=== PATIENT | female | born 1985 | race Caucasian/White ===

== ENCOUNTER → 2016-12-09 | Outpatient (CLI) | payer OTHER ==
[~2016-12-09] MED LIST: PRENTAB26 PO
[2016-12-09 09:46] LABS: HEMATOCRIT 40.1 % (37-47); MEAN CELL VOLUME 87.6 fL (80-100); MEAN CORPUSCULAR HEMOGLOBIN 29.7 pg (25-34); MEAN CORPUSCULAR HGB CONC 33.9 g/dl (32-36); MEAN PLATELET VOLUME 8.8 fL (7.4-10.4); PLATELET COUNT 275 K/uL (130-400); RED BLOOD COUNT 4.58 M/uL (4.2-5.4); WHITE BLOOD COUNT 9.45 K/uL (4.8-10.8)
[2016-12-09 10:19] LABS: RUBELLA SCREEN IgG (AT CCH) IMMUNE (IMMUNE)
== END | disposition home or self-care (01) ==
LOC: C.LAB1850 07:05
PROVIDERS: ATTEND Specialist
DX: Z31.41 Encounter for fertility testing (principal); Z01.83 Encounter for blood typing; Z11.59 Encounter for screening for other viral diseases; Z11.3 Encounter for screening for infections with a predominantly sexual mode of transmission; Z11.4 Encounter for screening for human immunodeficiency virus [HIV]; Z13.0 Encounter for screening for diseases of the blood and blood-forming organs and certain disorders involving the immune mechanism; Z13.21 Encounter for screening for nutritional disorder

== ENCOUNTER → 2016-12-28 | Outpatient (CLI) | payer OTHER | END | disposition home or self-care (01) | LOC: C.LAB1850 07:45 | PROVIDERS: ATTEND Specialist | DX: Z31.41 Encounter for fertility testing (principal) ==

== ENCOUNTER → 2017-01-04 | Outpatient (CLI) | payer OTHER | END | disposition home or self-care (01) | LOC: C.LAB1850 08:05 | PROVIDERS: ATTEND Specialist | DX: Z00.00 Encounter for general adult medical examination without abnormal findings (principal) ==

== ENCOUNTER → 2017-01-06 | Outpatient (CLI) | payer OTHER | END | disposition home or self-care (01) | LOC: C.LAB1850 08:56 | PROVIDERS: ATTEND Specialist | DX: Z31.41 Encounter for fertility testing (principal) ==

== ENCOUNTER → 2017-02-04 | Outpatient (CLI) | payer OTHER | END | disposition home or self-care (01) | LOC: C.LAB1850 07:33 | PROVIDERS: ATTEND Specialist | DX: O09.00 Supervision of pregnancy with history of infertility, unspecified trimester (principal); Z3A.00 Weeks of gestation of pregnancy not specified ==

== ENCOUNTER → 2017-02-08 | Outpatient (CLI) | payer OTHER | END | disposition home or self-care (01) | LOC: C.LAB1850 07:06 | PROVIDERS: ATTEND Specialist | DX: Z32.00 Encounter for pregnancy test, result unknown (principal) ==

== ENCOUNTER → 2017-03-15 | Outpatient (CLI) | payer OTHER ==
[~2017-03-15] MED LIST changes: +FOLI1TAB7 PO; +MTR600X PO; +OXYC-57 PO
[2017-03-15 18:24] LABS: URINE APPEARANCE CLEAR (CLEAR); URINE BILIRUBIN NEG (NEG); URINE COLOR YELLOW; URINE NITRITE NEG (NEG); URINE PH 6.5 (4.5-7.5); URINE SPECIFIC GRAVITY 1.005 (1.000-1.030); UROBILINOGEN NEG (NEG)
[2017-03-15 18:30] LABS: MANUAL MICROSCOPIC REQUIRED? NO; REVIEW REQ? NO
[2017-03-18 03:05] LABS: CHLAMYDIA TRACH RNA*** NOT DETECTED (NOT DETECTED); GC (NEIS GONORRHOEAE)RNA** NOT DETECTED (NOT DETECTED)
== END | disposition home or self-care (01) ==
LOC: C.LABSPEC 17:50
PROVIDERS: ATTEND Obstetrics & Gynecology
DX: O09.819 Supervision of pregnancy resulting from assisted reproductive technology, unspecified trimester (principal)

== ENCOUNTER → 2017-03-15 | Outpatient (CLI) | payer OTHER ==
[2017-03-15 16:36] LABS: BASO % 0.1 %; BASO ABS # 0.01 K/uL (0-0.2); COMPLETE YES; EOS % 0.2 %; HEMATOCRIT 38.2 % (37-47); IG% 0.2 %; LYMPH % 22.3 %; LYMPH ABS # 2.73 K/uL (1.2-3.4); MEAN CELL VOLUME 86.8 fL (80-100); MEAN CORPUSCULAR HEMOGLOBIN 30.2 pg (25-34); MEAN CORPUSCULAR HGB CONC 34.8 g/dl (32-36); MEAN PLATELET VOLUME 8.2 fL (7.4-10.4); MONO % 7.1 %; NEUT % 70.1 %; PLATELET COUNT 290 K/uL (130-400); WHITE BLOOD COUNT 12.25 K/uL (4.8-10.8)
== END | disposition home or self-care (01) ==
LOC: C.LAB1850 15:11
PROVIDERS: ATTEND Obstetrics & Gynecology
DX: O09.819 Supervision of pregnancy resulting from assisted reproductive technology, unspecified trimester (principal)

== ENCOUNTER → 2017-04-26 | Outpatient (CLI) | payer OTHER ==
[2017-04-26 11:22] LABS: GTGD 50 Grams
== END | disposition home or self-care (01) ==
LOC: C.LAB1850 09:12
PROVIDERS: ATTEND Obstetrics & Gynecology
DX: O09.812 Supervision of pregnancy resulting from assisted reproductive technology, second trimester (principal)

== ENCOUNTER → 2017-07-20 | Outpatient (CLI) | payer OTHER ==
[~2017-07-20] MED LIST changes: -FOLI1TAB7 PO; -MTR600X PO; -OXYC-57 PO
[2017-07-20 18:16] LABS: URINE APPEARANCE CLEAR (CLEAR); URINE BILIRUBIN NEG (NEG); URINE COLOR YELLOW; URINE NITRITE NEG (NEG); URINE PH 7.5 (4.5-7.5); URINE SPECIFIC GRAVITY 1.011 (1.000-1.030); UROBILINOGEN NEG (NEG)
[2017-07-20 18:19] LABS: MANUAL MICROSCOPIC REQUIRED? NO; REVIEW REQ? YES
== END | disposition home or self-care (01) ==
LOC: C.LABSPEC 17:34
PROVIDERS: ATTEND Obstetrics & Gynecology
DX: O09.813 Supervision of pregnancy resulting from assisted reproductive technology, third trimester (principal)

== ENCOUNTER → 2017-07-20 | Outpatient (CLI) | payer OTHER ==
[2017-07-20 17:44] LABS: HEMATOCRIT 31.3 % (37-47)
[2017-07-20 22:13] LABS: GTGD 50 Grams
== END | disposition home or self-care (01) ==
LOC: C.LAB1850 16:42
PROVIDERS: ATTEND Obstetrics & Gynecology
DX: O09.813 Supervision of pregnancy resulting from assisted reproductive technology, third trimester (principal)

== ENCOUNTER 2017-10-04 15:27 | Inpatient (IN) | payer OTHER ==
[~2017-10-04] VITALS: Ht 167.6 cm; Wt 88.5 kg
[2017-10-04] MEDS ORDERED: LACTATED RINGER'S 1000ML 1,000 ML IV PRN (16:29)
[2017-10-04 16:57] VITALS: Ht 167.6 cm; Wt 88.5 kg
[2017-10-04 16:59] LABS: HEMATOCRIT 36.9 % (37-47); MEAN CELL VOLUME 86.6 fL (80-100); MEAN CORPUSCULAR HEMOGLOBIN 29.6 pg (25-34); MEAN CORPUSCULAR HGB CONC 34.1 g/dl (32-36); MEAN PLATELET VOLUME 8.5 fL (7.4-10.4); PLATELET COUNT 214 K/uL (130-400); RED BLOOD COUNT 4.26 M/uL (4.2-5.4); WHITE BLOOD COUNT 11.99 K/uL (4.8-10.8)
[2017-10-04] MEDS ORDERED: FOLI1TAB7 PO (17:04)
[2017-10-04 17:26] LABS: BUN/CREATININE RATIO 12.4 (10-20); CALCIUM 9.3 mg/dl (8.5-10.1); CREATININE 0.7 mg/dl (0.60-1.20)
[2017-10-04 17:29] LABS: ALB/GLOB RATIO 0.6 (0.9-2)
[2017-10-04] MEDS ORDERED: LACTATED RINGER'S 1000ML 500 ML IV PRN (21:17)
[2017-10-04] MEDS ORDERED: OXYTOCIN 30 UNITS/500ML NSS IV PRN (21:30)
[2017-10-04] MEDS: LACTATED RINGER'S 1000ML 1,000 ML IV SCH (22:05)
[2017-10-05] MEDS: LACTATED RINGER'S 1000ML 1,000 ML IV SCH ×3 (06:08→17:46)
[2017-10-05] MEDS ORDERED: LACTATED RINGER'S 1000ML 500 ML IV PRN ×3 (08:14→23:16)
[2017-10-05] MEDS ORDERED: OXYTOCIN 30 UNITS/500ML NSS IV PRN (08:15)
[2017-10-05] MEDS ORDERED: FENTANYL 2MCG/ML ROPIV 1.25MG/ML 100ML BAG EPI ONE (12:47)
[2017-10-05] MEDS ORDERED: EpHEDrine SULFATE INJ 50 MG/ML AMP ONE (12:47)
[2017-10-05] MEDS ORDERED: FENTANYL CITRATE INJ 50 MCG/1 ML 2 ML VIAL ONE ×2 (12:47→23:10)
[2017-10-05] MEDS ORDERED: BUPIVACAINE 0.25% 30 ML VIAL ONE ×2 (12:47→22:59)
[2017-10-05] MEDS ORDERED: NALOXONE HCL INJ 1 MG in SODIUM CHLORIDE 0.9% 1000ML 1,000 ML IV PRN ×2 (14:06→23:16)
[2017-10-05] MEDS ORDERED: ONDANSETRON INJ 2 MG/ML 2 ML VIAL IV PRN (14:15)
[2017-10-05] MEDS ORDERED: EpHEDrine SULFATE INJ 50 MG/ML AMP IV PRN ×2 (14:15→23:30)
[2017-10-05] MEDS ORDERED: DiphenhydrAMINE HCL 50 MG/ML VIAL IV PRN ×2 (14:15→23:30)
[2017-10-05] MEDS ORDERED: NALBUPHINE HCL INJ 10 MG/ML AMP IV PRN ×2 (14:15→23:30)
[2017-10-05] MEDS ORDERED: NALOXONE HCL INJ 0.4 MG/1 ML VIAL/CARP IV PRN ×2 (14:15→23:30)
[2017-10-05] MEDS: FENTANYL 2MCG/ML ROPIV 1.25MG/ML 100ML BAG EPI PRN ×3 (19:08→23:37)
[2017-10-05] MEDS ORDERED: FENTANYL 2MCG/ML ROPIV 1.25MG/ML 100ML BAG EPI PRN (23:30)
[2017-10-06] VITALS (20 sets, daily range): BP systolic 115–146; BP diastolic 53–90; PULSE 98–112; TEMP 36.7–37.3; O2SAT 96–100
[2017-10-06] MEDS ORDERED: LACTATED RINGER'S 1000ML 1,000 ML IV SCH ×2 (00:44→11:00)
[2017-10-06] MEDS ORDERED: CITRIC ACID/SODIUM CITRATE 15 ML UDC PO ONE (00:45)
[2017-10-06] MEDS ORDERED: CITRIC ACID/SODIUM CITRATE 15 ML UDC ONE (00:46)
[2017-10-06] MEDS ORDERED: CEFAZOLIN IV 2,000 MG in SYRINGE 0 ML IV ONE (01:00)
[2017-10-06] MEDS ORDERED: METOCLOPRAMIDE HCL INJ 5 MG/ML 2 ML VIAL ONE (01:06)
[2017-10-06] MEDS ORDERED: OXYTOCIN INJ 10 UNITS/ML VIAL ONE ×4 (01:06→02:01)
[2017-10-06] MEDS ORDERED: ONDANSETRON INJ 2 MG/ML 2 ML VIAL ONE ×2 (01:06→02:01)
[2017-10-06] MEDS ORDERED: PHENYLEPHRINE HCL INJ 10 MG/ML VIAL ONE (01:06)
[2017-10-06] MEDS ORDERED: EpHEDrine SULFATE INJ 50 MG/ML AMP ONE (01:06)
[2017-10-06] MEDS ORDERED: FENTANYL CITRATE INJ 50 MCG/1 ML 2 ML VIAL ONE (01:06)
[2017-10-06] MEDS ORDERED: MoRPHine SULFATE PF 1 MG/ML 10 ML AMP/VIAL ONE (01:07)
--- NOTE | 2017-10-06 01:42 | HISTORY & PHYSICAL EXAMINATION ---
DATE OF ADMISSION: 10/04/2017 PREOPERATIVE DIAGNOSES: 1. Intrauterine at 39 and 5/7 weeks. 2. Gestational hypertension. 3. Failure to descend with failure to progress past 9 cm. HISTORY OF PRESENT ILLNESS: The patient is a 32-year-old white female, 3, para 0-0-2-0, with an EDC of 10/09/2017, for an estimated gestational age today of 39 and 5. The patient presented to her outpatient 39-week visit, was found to have elevated blood pressures of 150s/90s. She was sent to labor and delivery for evaluation. Decision was made for induction for gestational hypertension. The patient underwent a Schofield catheter ripening on day 1 with low-dose Pitocin overnight on day 1 into day 2. On day 2, normal induction dosing of Pitocin was started. She underwent an amniotomy for thin green meconium stained fluid. An intrauterine pressure catheter was placed at 5 cm dilated and her Pitocin was at 917 to evaluate for adequacy of contractions. Contractions were adequate at that time. She progressed very slowly to 9 cm. At about 5:00, she was 7 cm and -1 station. At around 9:00, she was 9 cm with a very large edematous anterior lip. We tried to push past this as the patient was involuntarily pushing; however, the lip could not be reduced, so the patient's epidural was redosed. She has now been 9 cm with a thickened anterior lip for 4 hours. The patient's station has not descended from -1. I discussed the situation with the patient and her at this point in time. I did discuss that we could wait longer to see if this anterior lip would go away, but it was quite concerning that over the space of 4 hours, the lip had not reduced at all and that the station had not descended from -1 station. Additionally, the baby is in ROP presentation. We discussed the option of continued labor until per ACOG recommendation she is 6 hours without descent or further dilation or proceeding with delivery. After discussing the risks and benefits of any of these options, they have decided to proceed with delivery. Her is complicated in that she is a cystic fibrosis carrier but her partner is negative. This was conceived via in vitro fertilization. There was a normal echo. Ultrasound performed on 08/16/2017 to follow growth in this IVF showed an estimated weight in the 87th percentile. PAST OBSTETRICAL/GYNECOLOGIC HISTORY: This is the patient's third . Her first was an ectopic with salpingectomy in 2014, she had a spontaneous in 08/2016 and this is her third . She does have a history of a LEEP procedure in 2006 and 2007. Her IVF was done at [facility] with the chance for date of 01/21/2017, our dating is excellent. She does have a known endometrioma of, she says, the left ovary with resultant endometriosis. ALLERGIES: No known drug allergies. MEDICATIONS: vitamins and folic acid. PAST MEDICAL HISTORY: She has a history of migraine and a history of chickenpox but is otherwise healthy. Denying thyroid disease, asthma, heart disease, heart murmur, diabetes, kidney or liver disorders. SOCIAL HISTORY: The patient denies tobacco, alcohol or drug use. She lives with her spouse. PHYSICAL EXAMINATION: GENERAL: This is a well-developed, well-nourished white female, in no acute distress. VITAL SIGNS: Her blood pressure is 139/69. NECK: Supple without thyromegaly or lymphadenopathy. CHEST: Clear to auscultation bilaterally. CARDIOVASCULAR: Regular rate and rhythm. ABDOMEN: Soft, gravid and nontender. EXTREMITIES: Show 2+ edema but are otherwise benign. Cervix 9, -1, very edematous anterior lip. Tocodynamometer every 2 minutes, Pitocin at 19 MVUs greater than 200 since placement of IUPC at 5 cm dilated. EXTERNAL MONITOR: The fetus is baseline, is in the 150s with moderate variability, accels to 170s, no decels noted. LABORATORY DATA: Blood type A negative, rubella immune, RPR nonreactive, hepatitis B negative, HIV negative, chlamydia and gonorrhea negative. Glucose tolerance test x2 negative. GBS negative. ASSESSMENT: This is a at 39 and 5/7 weeks, in vitro fertilization with induction for gestational hypertension, who has now been persistently 9 cm with a thickened, edematous anterior lip, right occipitoposterior presentation, who has not descended in the last 6+ hours despite adequate Pitocin augmentation. We discussed the options of continued monitoring, waiting another 2 hours to see if the situation changes, but given that her descent has not changed in the last 6+ hours, I doubt that we are going to get anywhere in the next 2 hours; however, I did offer her this possibility or proceeding with section. They have decided to proceed with delivery. The risks, benefits and side effects were discussed with the patient including the risks of anesthesia, bleeding requiring transfusion, infection, poor wound healing, damage to surrounding structures including bowel, bladder, vessels, nerves and ureters with need for further surgery, hospitalization or intervention. We discussed the other risks of surgery including heart attack, blood clot, stroke or . Surgery was explained in full to the patient and she signed consent and we plan to proceed.
[2017-10-06] MEDS ORDERED: NALOXONE HCL INJ 1 MG in SODIUM CHLORIDE 0.9% 1000ML 1,000 ML IV PRN (02:25)
[2017-10-06] MEDS ORDERED: BENZOCAINE 20% AER SPR 82.5 GM CAN EXT PRN (02:30)
[2017-10-06] MEDS ORDERED: PROMETHAZINE HCL INJ 25 MG in SODIUM CHLORIDE 0.9% 50ML 50 ML IV PRN (02:30)
[2017-10-06] MEDS ORDERED: SUPERCREAM 0.870 % 15GM JAR EXT PRN (02:30)
[2017-10-06] MEDS ORDERED: MoRPHine SULFATE 2 MG/ML CARP IV PRN (02:30)
[2017-10-06] MEDS ORDERED: KETOROLAC TROMETHAMINE 30 MG/ML VIAL IV. PRN ×2 (02:30→20:02)
[2017-10-06] MEDS ORDERED: DIPHTHERIA/TETANUS/PERTUSSIS 0.5 ML SYR/VIAL IM. ONE (02:30)
[2017-10-06] MEDS ORDERED: HYDROCORTISONE ACETATE 25 MG SUPP PR PRN (02:30)
[2017-10-06] MEDS ORDERED: LANOLIN OINT EXT PRN ×2 (02:30)
[2017-10-06] MEDS ORDERED: CONTINUE MEDICATION ONE (02:30)
[2017-10-06] MEDS ORDERED: DC PCA PRN (02:30)
[2017-10-06] MEDS ORDERED: MoRPHine SULFATE PF 1 MG/ML 10 ML AMP/VIAL EPI PRN (02:30)
[2017-10-06] MEDS ORDERED: NO NARCOTICS OR SEDATIVES SCH (02:30)
[2017-10-06] MEDS ORDERED: ONDANSETRON INJ 2 MG/ML 2 ML VIAL IV PRN (02:30)
[2017-10-06] MEDS ORDERED: METOCLOPRAMIDE HCL INJ 20 MG in SODIUM CHLORIDE 0.9% 50ML 50 ML IV PRN (02:30)
[2017-10-06] MEDS: OXYTOCIN INJ 20 UNITS in LACTATED RINGER'S 1000ML 1,000 ML IV SCH ×2 (03:14→16:06)
--- NOTE | 2017-10-06 04:56 | OPERATIVE REPORT ---
DATE OF OPERATION: 10/06/2017 PREOPERATIVE DIAGNOSES: 1. Intrauterine at 39-5/7 weeks. 2. Gestational hypertension. 3. In vitro fertilization . 4. Failure to descend. 5. Thin meconium. POSTOPERATIVE DIAGNOSES: Same. PROCEDURE: Primary low transverse section. SURGEON: Arlen Yan MD. GROUNDMAN: Marly Santos RN. ANESTHESIA: Epidural. ESTIMATED BLOOD LOSS: 700 mL. FLUIDS: 1000 mL. URINE OUTPUT: 200 mL of concentrated urine drained from the bladder at the end of the procedures. INDICATIONS: The patient is a 3, para 0-0-2-0 with a history of an IVF who developed gestational hypertension at 39 weeks. She presented for induction. She was induced, progressed to 9, edematous anterior lip and -1 station. The fetus did not descend lower than -1 station for over 6 plus hours and the patient remained at 9 with a very edematous anterior lip for almost 4 hours. We discussed the possibility of continued further labor versus section for failure to descend and she has chosen section. FINDINGS: Viable male delivered from ROP presentation, Apgars were 8 and 9, weight 7 pounds 12 ounces. Normal uterus, tubes, and ovaries were noted bilaterally. Of note, there were no appreciable masses on either of the ovaries. The left tube was absent. The right tube appeared normal. COMPLICATIONS: None. DRAINS: Schofield. DISPOSITION: To recovery room in stable condition. DESCRIPTION OF PROCEDURE: The patient was taken to the operating room where she was identified verbally and by bracelet. She was placed in dorsal supine position with a leftward tilt. A Schofield catheter had previously been placed. Her epidural anesthesia was dosed. She was prepped and draped in normal sterile fashion. Her epidural was tested and found to be adequate. A timeout was held identifying correct patient, procedure, positioning and preoperative antibiotics of 2 grams of Ancef. A Pfannenstiel skin incision was made with the knife and taken down to the underlying layer of fascia with the knife and Bovie electrocautery. Bleeding was attended to with Bovie electrocautery. The fascia was incised in the midline with cautery and taken out laterally with scissors. Bleeding was attended to with Bovie electrocautery. The superior edge of the fascial incision was grasped, elevated and the underlying layer of rectus muscle was taken off bluntly and sharply with scissors. In a similar fashion, the inferior edge of the fascial incision was grasped, elevated and the underlying layer of rectus muscle was taken off bluntly and with scissors. The muscles were bluntly and sharply in the midline. The peritoneum was entered bluntly and was taken superiorly and inferiorly with good visualization of the bladder sharply with scissors. The incision was stretched. A bladder flap was created by grasping the vesicouterine peritoneum, entering with scissors and taking out laterally with scissors. The bladder flap was created digitally. The bladder blade was placed. Hysterotomy incision was scored with the knife. When the uterus was entered, thin green meconium was noted. The incision was stretched. The stamping press operator's hand was placed into the uterus and the head was delivered atraumatically. There was significant molding noted to the head and the fetus was in ROP presentation. The nose and the mouth were bulb suctioned and the rest of the infant was then delivered through a body cord. There was immediate cry on the operative field. The nose and mouth were again bulb suctioned. The cord was clamped and cut and the infant was handed off to the waiting drawbench operator helper for drying and attention. Cord blood and segment were obtained. Placenta was expressed. The uterus was then exteriorized and cleared of all clot and debris with moistened laparotomy sponges. The hysterotomy incision was repaired in 2 layers, the first in running locked layer, the second in an imbricating layer of 0 Vicryl. The posterior cul-de-sac was then irrigated and cleared of all clot and debris. Both ovaries look normal. There were no appreciable ovarian masses noted. The left tube was surgically absent. The hysterotomy incision was again inspected. A rgtmay-nu-xadzi suture of 0 Vicryl was placed for hemostasis in the midline of the incision and then hemostasis was noted to be good. The uterus was reanteriorized. The incision was again inspected and found to be hemostatic. The rectus muscles were reapproximated in the midline. An oozing bleed on the right side of the rectus muscle was attended to with 1 wnhnad-pe-vxvyz suture of 0 Vicryl. Then hemostasis of the rectus muscles was noted to be good. The fascia was reapproximated meeting in the midline with 0 Vicryl. The subcuticular tissue was copiously irrigated with warm normal saline and bleeding was attended to with Bovie electrocautery and the skin was closed with subcuticular stitch of 4-0 Vicryl. All sponge, lap and needle counts were correct x2. The patient tolerated the procedure well and was taken to recovery room in stable condition. I attest to the content of the Intraoperative Record and any orders documented therein. Any exception s are noted below.
[2017-10-06] MEDS: DOCUSATE SODIUM 100 MG CAP PO SCH ×2 (08:02→20:00)
[2017-10-06] MEDS: PRENATAL VITAMIN TAB PO SCH (08:02)
[2017-10-06] MEDS: SIMETHICONE 80 MG CHEW PO SCH ×4 (08:03→20:00)
[2017-10-06] MEDS ORDERED: DiphenhydrAMINE HCL 50 MG/ML VIAL IV PRN (20:02)
[2017-10-06] MEDS ORDERED: DC INTRASPINAL MORPHINE ONE (20:02)
[2017-10-06] MEDS ORDERED: MEPERIDINE HCL 50 MG/ML CARP IV PRN ×2 (20:02)
[2017-10-06] MEDS ORDERED: OXYCODONE/ACETAMINOPHEN 5-325 TAB PO PRN ×2 (20:02)
[2017-10-07] MEDS: OXYTOCIN INJ 20 UNITS in LACTATED RINGER'S 1000ML 1,000 ML IV SCH (02:37)
--- NOTE | 2017-10-07 06:36 | Progress Note ---
Subjective Oct 07, 2017. Subjective conversation w/ patient, physical exam Ambulation: ambulating normally Voiding: no voiding problems Passing Gas: Yes Diet Tolerance: Regular Diet Lochia: Moderate Feeding Type: Breast Feeding Review of Systems Constitutional: No fever, No chills Respiratory: No cough Cardiac: No chest pain Abdomen: No nausea, No vomiting Objective Vital Signs Date Time Temp Pulse Resp B/P (MAP) Pulse Ox O2 Delivery O2 Flow Rate FiO2 10/06/17 23:30 99 Room Air 10/06/17 23:30 36.7 102 18 129/82 (98) Room Air 10/06/17 20:30 36.8 112 20 115/79 (91) 99 Room Air 10/06/17 20:30 18 99 10/06/17 18:00 18 98 10/06/17 17:30 18 97 10/06/17 16:30 18 98 10/06/17 15:40 36.8 104 18 136/53 (80) 98 Room Air 10/06/17 15:40 98 Room Air 10/06/17 15:40 18 98 10/06/17 14:49 20 96 10/06/17 14:05 18 99 10/06/17 13:13 20 99 10/06/17 12:21 18 100 10/06/17 11:47 96 Room Air 10/06/17 11:47 37.2 107 20 126/80 (95) 96 Room Air 10/06/17 11:24 18 97 10/06/17 10:39 20 97 10/06/17 09:40 18 99 10/06/17 08:39 18 100 10/06/17 07:45 Room Air 10/06/17 07:45 18 99 10/06/17 07:33 36.8 98 16 146/90 (108) 99 Room Air 10/06/17 07:00 18 97 Physical Exam General Appearance: WELL-APPEARING, NO APPARENT DISTRESS Respiratory/Chest: no respiratory distress, no accessory muscle use Cardiovascular: no edema Abdomen: non tender, soft Fundus: Firm Incision Description: Clean, Dry & Intact Extremities: no calf tenderness Laboratory Results Last 24 Hours Test 10/07/17 06:28 Assessment and Plan Post-Op Day#: 1 Continue Routine Care: Routine POC. Voiding already, eating regular diet.
[2017-10-07 06:50] LABS: BASO % 0.1 %; BASO ABS # 0.02 K/uL (0-0.2); EOS % 0.3 %; HEMATOCRIT 24.6 % (37-47); IG% 0.5 %; LYMPH % 11.3 %; MEAN CELL VOLUME 88.2 fL (80-100); MEAN CORPUSCULAR HEMOGLOBIN 29.7 pg (25-34); MEAN CORPUSCULAR HGB CONC 33.7 g/dl (32-36); MEAN PLATELET VOLUME 8.1 fL (7.4-10.4); MONO % 7.8 %; PLATELET COUNT 162 K/uL (130-400); RED BLOOD COUNT 2.79 M/uL (4.2-5.4); WHITE BLOOD COUNT 14.99 K/uL (4.8-10.8)
[2017-10-07] MEDS: IBUPROFEN 600 MG TAB PO PRN ×3 (07:19→19:06)
[2017-10-07] MEDS: DOCUSATE SODIUM 100 MG CAP PO SCH ×2 (07:29→21:18)
[2017-10-07] MEDS: PRENATAL VITAMIN TAB PO SCH (07:29)
[2017-10-07] MEDS: SIMETHICONE 80 MG CHEW PO SCH ×4 (07:30→21:18)
[2017-10-07 07:54] LABS: COMPLETE YES
[2017-10-07 08:01] VITALS: BP 134/83; PULSE 99; TEMP 36.8
[2017-10-07 15:47] VITALS: BP 153/78; PULSE 102; TEMP 36.5; O2SAT 97
[2017-10-07 19:00] VITALS: BP 137/83; PULSE 103; TEMP 36.5
[2017-10-08 00:15] VITALS: BP 148/88; PULSE 109; TEMP 36.8; O2SAT 98
[2017-10-08] MEDS: IBUPROFEN 600 MG TAB PO PRN ×5 (02:44→20:50)
[2017-10-08 04:45] VITALS: BP 150/83; PULSE 97
[2017-10-08 06:50] LABS: HEMATOCRIT 24.4 % (37-47)
--- NOTE | 2017-10-08 07:48 | Progress Note ---
Subjective Oct 08, 2017. Subjective conversation w/ patient, physical exam, chart review, lab review Ambulation: ambulating normally Voiding: no voiding problems Passing Gas: Yes Diet Tolerance: Regular Diet Lochia: Moderate Feeding Type: Breast Feeding Pain: controlled Review of Systems Respiratory: No shortness of breath Cardiac: No chest pain Abdomen: No nausea, No vomiting Female : No dysuria Objective Vital Signs Date Time Temp Pulse Resp B/P (MAP) Pulse Ox O2 Delivery O2 Flow Rate FiO2 10/08/17 04:45 97 20 150/83 (105) 10/08/17 00:15 Room Air 10/08/17 00:15 36.8 109 20 148/88 (108) 98 Room Air 10/07/17 19:00 36.5 103 20 137/83 (101) Room Air 10/07/17 15:47 36.5 102 20 153/78 (103) 97 Room Air 10/07/17 15:30 Room Air 10/07/17 08:01 36.8 99 18 134/83 (100) Room Air Physical Exam General Appearance: WELL-APPEARING, WD/WN, NO APPARENT DISTRESS Respiratory/Chest: lungs clear, normal breath sounds, no respiratory distress Cardiovascular: regular rate, rhythm, no gallop, no murmur Abdomen: normal bowel sounds, soft Fundus: Firm, Tender (appropriately tender), Relation to Umbilicus (1 below U) Extremities: non-tender, normal inspection, no pedal edema Laboratory Results Last 24 Hours Test 10/08/17 06:25 Hemoglobin 7.9 g/dL Hematocrit 24.4 % Assessment and Plan Post-Op Day#: 2 Continue Routine Care: Vital signs reviewed and wnl with the exception of hypertension (150/83), and mild tachycardia (pulse 97). Hgb reviewed 12.6 on admission, 8.3, (today 7.9). Blood type A -, GBS -, RI. Pt doing well clinically, denies headaches, change in vision. Encourage ambulation, . Resume regular diet. Control pain with motrin/tylenol. Monitor lochia. Continue routine post care. Anticipate discharge tomorrow. ALYSSA GODFREY FMR PGY 1. Resident Physician Supervision Note: I interviewed and examined the patient. Discussed with Dr. Godfrey and agree with findings and plan as documented in the note. Any exceptions or clarifications are listed here: [None] Documented By: Janusz Lopez Resident Tracking Resident Involvement: Resident Care Provided Care Provided: OB Delivery
[2017-10-08 08:00] VITALS: BP 143/84; PULSE 89; TEMP 36.8
[2017-10-08] MEDS: DOCUSATE SODIUM 100 MG CAP PO SCH ×2 (08:21→20:50)
[2017-10-08] MEDS: PRENATAL VITAMIN TAB PO SCH (08:21)
[2017-10-08] MEDS: SIMETHICONE 80 MG CHEW PO SCH ×4 (08:21→20:50)
[2017-10-08 15:30] VITALS: BP 145/80; PULSE 92; TEMP 36.8
[2017-10-08 19:30] VITALS: BP 150/90; PULSE 99; TEMP 36.8
[2017-10-09 01:05] VITALS: BP 156/86; PULSE 93; TEMP 36.7; O2SAT 97
[2017-10-09] MEDS: IBUPROFEN 600 MG TAB PO PRN ×2 (06:11→10:53)
--- NOTE | 2017-10-09 07:48 | Progress Note ---
Subjective Oct 09, 2017. Subjective conversation w/ patient, physical exam, chart review, lab review Ambulation: ambulating normally Voiding: no voiding problems Passing Gas: Yes Diet Tolerance: Regular Diet Lochia: Moderate Feeding Type: Breast Feeding Pain: controlled Review of Systems Respiratory: No shortness of breath Cardiac: No chest pain Abdomen: No nausea, No vomiting Female : No dysuria Objective Vital Signs Date Time Temp Pulse Resp B/P (MAP) Pulse Ox O2 Delivery O2 Flow Rate FiO2 10/09/17 01:05 36.7 93 18 156/86 (109) 97 Room Air 10/09/17 01:05 97 Room Air 10/08/17 19:30 36.8 99 20 150/90 (110) Room Air 10/08/17 15:30 36.8 92 20 145/80 (101) Room Air 10/08/17 15:30 Room Air 10/08/17 08:00 36.8 89 16 143/84 (103) Room Air 10/08/17 07:45 Room Air Physical Exam General Appearance: WELL-APPEARING, WD/WN, NO APPARENT DISTRESS Respiratory/Chest: lungs clear, normal breath sounds, no respiratory distress Cardiovascular: regular rate, rhythm Abdomen: normal bowel sounds, soft Fundus: Firm, Tender (appropriately tender), Relation to Umbilicus (1 below U) Incision Description: Clean, Dry & Intact Extremities: non-tender, normal inspection Assessment and Plan Post-Op Day#: 3 Continue Routine Care: Vital signs reviewed and wnl with the exception of hypertension (156/86), and mild tachycardia (pulse 93). 97 on room air Hgb reviewed 12.6 on admission, 8.3, yesterday 7.9. Stable. Blood type A -, GBS -, RI. Pt doing well clinically, denies headaches, change in vision. Encourage ambulation, . Resume regular diet. Control pain with motrin/tylenol. Monitor lochia. Continue routine post care. Pt counselled on discharge instructions including explicit instructions to call and schedule a nurse blood pressure check for next week (10/14). Pt verbalized understanding and agrees with this plan. ALYSSA GODFREY FMR PGY 1 Resident Physician Supervision Note: I interviewed and examined the patient. Discussed with Dr. Godfrey and agree with findings and plan as documented in the note. Any exceptions or clarifications are listed here: D/C instructions given, f/u in 1 week for BP check Documented By: Lalit Owens . Resident Tracking Resident Involvement: Resident Care Provided Care Provided: OB Delivery
--- NOTE | 2017-10-09 07:50 | Discharge Instructions ---
Discharge Instructions Date of Service Oct 09, 2017. Admission Reason for Admission: Blood Pressure Eval Discharge Discharge Diagnosis / Problem: Section Discharge Goals Goal(s): Routine recovery after Medications Continue Dispensed Medications: supercream, dermaplast, lansinoh Activity Recommendations Activity Limitations: per Instructions/Follow-up section . Instructions / Follow-Up Instructions / Follow-Up PLEASE BE SURE TO CALL THE OFFICE ON WEDNESDAY TO SCHEDULE YOUR BLOOD PRESSURE CHECK, TO BE DONE 10/14/17 OR 10/15/17. ACTIVITY RECOMMENDATIONS: * Gradual return to full activity over the next 2-3 weeks. * No lifting - nothing heavier than baby over the next 2-3 weeks. * Do not engage in vigorous exercise, sexual activity or sports until cleared by your physician. * Do not drive or operate any motorized equipment until cleared by your physician. * You may shower/bathe daily. MEDICATIONS: For discomfort or pain, you may use Acetaminophen (Tylenol), Ibuprofen (Advil), or Naproxen (Aleve) following the package directions. For constipation you may use Colace following the package directions. BREAST CARE: If you are not breast feeding: * Wear a supportive bra 24 hours a day for one to two weeks. * Avoid stimulating your breasts and nipples as much as possible during the first few weeks after delivery. * When taking a shower, have the warm water hit your back, not breasts. * When your breasts feel full, apply ice packs. Usually three to four times a day helps ease the discomfort. * Take a mild pain medication (Tylenol / Motrin) when you are uncomfortable. If breast feeding: * Use breast milk to lubricate nipples. Lansinoh cream may be used for sore nipples. You do not need to remove cream prior to breast feeding. If using a different brand of cream, check the label for directions regarding removal of cream prior to nursing. * Wear a supportive bra. * If having problems with breasts or breast feeding, call a health analytics consultant or your health care provider. SPECIAL CARE INSTRUCTIONS: When you are discharged from the hospital, it is important for you to follow the instructions listed below: * During the first week at home, you should be able to care for yourself and your baby. In addition, the usual light household activities are encouraged. * Limit your activities to the way you feel. Do not try to clean the house or move furniture. Be sensible. * If you actively engage in sports and have done so up until the time of your delivery, you may resume these activities as soon as you feel able. This may take up to one month or even longer. Use good judgment. * Continue to take your vitamins for at least six weeks after the of your baby. * Your diet need not be limited unless you were on a special diet before your delivery. Breast-feeding mothers need around 2500 calories per day and at least 64-80 ounces of fluid per day (8 to 10 glasses). * You should eat foods from the four major food groups. Crash diets or fad diets are to be avoided. Eating lean meats, fresh fruits and vegetables, low-fat dairy products, high fiber foods and a regular exercise program, will help you get back to your pre- weight without putting your health at risk. * Constipation is sometimes a problem after delivery. Take a mild laxative as needed. If breast feeding, Milk of Magnesia is acceptable to use. You may use a suppository or Fleets enema. * A daily shower or tub bath is suggested. Wash incision daily with warm soapy water and pat dry. It doesn't need to be covered unless drainage is present. * A bloody vaginal discharge will usually continue until around four weeks . A small amount of bleeding may continue for as long as six weeks. Vaginal discharge changes from the bright red bleeding after delivery to pink then brownish and finally yellowish-pink before becoming white and disappearing. * Bleeding may increase with activity. Your first period may come in 4-8 weeks. If you are breast feeding, your period may be delayed even longer. * [place] (sex) can begin whenever both you and your partner feel comfortable and do not have any form of genital infection. It is recommended that you wait at least six weeks for internal and external healing to occur. If you have questions, please talk to your health care practitioner. A condom should be used to prevent infection and . * Foreplay, gentle intercourse and lubrication is very important the first several times to prevent pain. A water-based lubricant such as K-Y jelly or Astroglide may be used. * If you have RH negative blood and your baby is RH positive, you will receive RHOGAM by injection prior to discharge. The nurse will give you a card to keep with you that has the date and place that you received RHOGAM after delivery. * During your care, you had a Rubella screen done to check for the presence of rubella antibodies in your blood. If your test was negative, you will receive a Rubella vaccine prior to discharge. This vaccine may cause a fever, soreness at the injection site and flu-like symptoms. If these symptoms persist, notify your health care practitioner. is not advised for one month after a Rubella vaccine. * Verbalizes understanding of car seat law as reviewed with patient nursing. * Car Seat hand-out given and reviewed with patient by nursing. * Shaken baby information reviewed with patient by nursing. Call you doctor if: * Heavy bleeding (saturating several pads an hour) or passing clots the size of your fist. * A fever >101 degrees F (38.3 degrees C) on two occasions four hours apart and /or chills. * Unusual pain in the pelvic or vaginal areas. * Call the doctor for any increased redness, drainage or swelling around the incision and any pain unrelieved by prescribed pain medication. * "Baby Blues" lasting longer than two weeks. If you have any questions or concerns, call your health care practitioner at . FOLLOW UP VISIT: * Please call the office at to schedule a 6 week examination. It is important you keep this appointment. It is important for you to make arrangements for either yearly or twice yearly check-ups thereafter. Current Hospital Diet Patient's current hospital diet: Regular OB Diet Discharge Diet Recommended Diet: Regular OB Diet Procedures Procedures Performed: Section of Live Male Child at 0141 Pending Studies Studies pending at discharge: no Medical Emergencies . Who to Call and When: Medical Emergencies: If at any time you feel your situation is an emergency, please call [phone] immediately. . Non-Emergent Contact Non-Emergency issues call your: Primary Care Provider . . "Provider Documentation" section prepared by Jacqueline Godfrey. . VTE Core Measure Inpt VTE Proph given/why not?: SCD's
[2017-10-09 07:56] VITALS: BP 143/84; PULSE 85; TEMP 36.9
[2017-10-09] MEDS ORDERED: MTR600X PO (08:01)
[2017-10-09] MEDS ORDERED: OXYC-57 PO (08:01)
[2017-10-09] MEDS: DOCUSATE SODIUM 100 MG CAP PO SCH (08:32)
[2017-10-09] MEDS: PRENATAL VITAMIN TAB PO SCH (08:32)
[2017-10-09] MEDS: SIMETHICONE 80 MG CHEW PO SCH (08:32)
[2017-10-09 12:00] VITALS: BP_DIAS 84; PULSE 85; TEMP 36.9
--- NOTE | 2017-10-11 16:17 | DISCHARGE SUMMARY ---
ADMISSION DIAGNOSES: 1. Intrauterine at 39 and 4/7 weeks. 2. Gestational hypertension. POSTOPERATIVE DIAGNOSES: 1. Same. 2. Same. 3. Failure to descend and failure to progress past 9 cm. PROCEDURE: Primary low transverse section. HISTORY OF PRESENT ILLNESS: The patient is a 32-year-old white female 3, para 0-0-2-0 with an EDC of 10/09/2017, who presented at 39 and 4/7 weeks for her outpatient 39-week visit and found to have elevated blood pressures in the 150s/90s. She was sent to labor and delivery for evaluation. Decision was made for induction for gestational hypertension. Labs were normal. She was asymptomatic at that time. For the rest of the patient's detailed history and physical, please see her dictated history and physical. ASSESSMENT: This is a at 39 and 4/7 weeks via in vitro fertilization, who is having an induction for gestational hypertension. HOSPITAL COURSE: The patient underwent a Schofield catheter bulb for cervical ripening and low-dose Pitocin overnight for day 1. On day 2, she underwent normal induction dosing of Pitocin. She underwent amniotomy for thin green meconium stained fluid and an intrauterine pressure catheter was placed to 5 cm dilated. Contractions were found to be adequate at that time. At 05:00, she was 7 cm and -1 station and around 09:00, she was 9 cm with a very large edematous anterior lip. We tried to push pass this as the patient was involuntarily pushing; however, the lip could not be reduced, so the patient's epidural was redosed. She was 9 cm with a thickened anterior lip for over 4 hours and the fetus of the patient had not distended from -1 station for at least 6 hours. I discussed the situation with the patient and her at that time. I did discuss that the heart rate was category 1 and so we could continue, but that I was concerned without distend the station and the increasing edematousness of the anterior lip and I felt that we were going to have failure to progress. They agreed to delivery. The patient underwent a primary low transverse section without difficulty. She delivered a viable male in ROP presentation, Apgars were 8 and 9, weight was 7 pounds 12 ounces. There were normal uterus, tubes, and ovaries bilaterally. Of note, there were no appreciable masses on either of her ovaries and the left tube was absent. The patient's course/postoperative course was uncomplicated. She tolerated a regular diet, ambulated, had urinated after the removal of her Schofield catheter and she remained afebrile. Her discharge H&H was 7.9 and 24.4, but she was asymptomatic. She was discharged on postoperative day #3 with ibuprofen and narcotics for pain control and to return for a normal post- care. She was to call the office on Wednesday to schedule a blood pressure check on October 14 or October 15. Signs and symptoms of preeclampsia were reviewed with the patient.
== END 2017-10-09 12:05 | disposition home or self-care (01) | DRG 766 ==
LOC: C.LD 15:27 → C.OPB 15:27 → C.LD 16:34 → C.OBG 10-06 05:06
PROVIDERS: ADMIT Obstetrics & Gynecology; ATTEND Obstetrics & Gynecology
PROC: 10903ZC Drainage of Amniotic Fluid, Therapeutic from Products of Conception, Percutaneous Approach (ICD-10-PCS; 2017-10-05)
PROC: 3E033VJ Introduction of Other Hormone into Peripheral Vein, Percutaneous Approach (ICD-10-PCS; 2017-10-05)
PROC: 10H07YZ Insertion of Other Device into Products of Conception, Via Natural or Artificial Opening (ICD-10-PCS; 2017-10-05)
PROC: 10D00Z1 Extraction of Products of Conception, Low, Open Approach (ICD-10-PCS; principal; 2017-10-06 00:46)
DX: O32.4XX0 Maternal care for high head at term, not applicable or unspecified (principal); O13.4 Gestational [pregnancy-induced] hypertension without significant proteinuria, complicating childbirth; O77.0 Labor and delivery complicated by meconium in amniotic fluid; O09.813 Supervision of pregnancy resulting from assisted reproductive technology, third trimester; O26.893 Other specified pregnancy related conditions, third trimester; N80.9 Endometriosis, unspecified; Z37.0 Single live birth; Z3A.39 39 weeks gestation of pregnancy; Z14.1 Cystic fibrosis carrier

== ENCOUNTER → 2017-11-18 | Outpatient (CLI) | payer OTHER ==
[~2017-11-18] MED LIST changes: +FOLI1TAB8 PO; +MTR600X PO; +OXYC-57 PO
== END | disposition home or self-care (01) ==
LOC: C.PAPS 09:14
PROVIDERS: ATTEND Obstetrics & Gynecology
DX: Z12.4 Encounter for screening for malignant neoplasm of cervix (principal)

== ENCOUNTER 2021-10-31 07:30 | Inpatient (IN) ==
--- NOTE | 2021-10-28 13:43 | Anesthesiology Consultation ---
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 No known Covid infection in the past 90 days. Patient is fully vaccinated for Covid. No known Covid positive contacts or Covid related symptoms. Preop Covid testing scheduled 10/29/21= will await results Patient seen at cardiology clinic 07/15/2021 = seen for initial evaluation in setting of IVF . to date has been uncomplicated. echo cardiogram done. Echocardiogram is normal with no evidence of major congenital heart disease, myocardial dysfunction, rhythm disturbances or pericardial effusion. I see no contraindication for delivering at [facility] as she is planning. Pediatric cardiology team can be consulted anytime should there be concern about infant's cardiovascular status. No reason to follow her in cardiology clinic nor do I see any need for echocardiogram for infant. echocardiogram report 07/15/2021 = normal LV/RV dimensions and systolic function. Normal LA/RA dimensions. Normal valve morphology/function. Normal cardiovascular shunts, heart rate and rhythm. No vascular abnormalities. No pericardial effusion. Recommendations: No cardiology follow-up, no changes to /gestation plan, no imaging recommended. Primary 10/06/2017 = epidural was dosed for section. History Surgery Operation Date: 10/31/21 07:30 Proposed Procedures p Section in LD (Delivery of Baby Through Abdmoinal Incision) - Arlen Yan MD, FACOG Height/Weight Height: 5 ft 7 in Weight: 90.718 kg Allergies Allergy/AdvReac Type Severity Reaction Status Date / Time No Known Drug Allergies Allergy Verified 10/28/21 12:49 Medications Home Medications Medication Instructions Recorded Confirmed Last Taken prenat.vits,whitley,[id number] 1 tab PO HS 01/24/21 10/28/21 Unknown breast pump #1 ea 08/28/21 10/23/21 Unknown docusate sodium 100 mg tablet 100 mg PO QAM 10/28/21 10/28/21 Unknown Past Medical History Medical History Nausea and vomiting after administration of anesthetic agent No pertinent past medical history Ruptured left tubal ectopic causing hemoperitoneum hx of Past Family History Family History Mother Diabetes Hypertension Father Hypertension Parkinson disease Other No family history of adverse response to anesthesia Denies family history of Ovarian cancer Prostate cancer Myocardial infarction Breast cancer Colorectal cancer Past Surgical History Surgical History History of esophagogastroduodenoscopy (EGD) History of loop electrical excision procedure (LEEP) S/P section S/P ectopic L salpingectomy S/P tonsillectomy S/P wisdom tooth extraction Social History Smoking Status: Former smoker tobacco type: cigarettes Do You Dip or Chew Tobacco: No Smoking End Date: quit 10 years ago Hx Alcohol Use: No (none during , prior to drank occasionally) Hx Substance Use: No substance use type: does not use
--- NOTE | 2021-10-30 09:38 | History & Physical Report ---
Date of Service October 30, 2021 Assessment & Plan (1) Supervision of elderly multigravida: (2) resulting from in vitro fertilization, antepartum: (3) Previous delivery affecting : Plan: Patient presents for elective repeat c/s. Declines TL. The risks of the surgery were discussed with the patient including anesthesia, bleeding, transfusion, infection, poor wound healing, damage to surrounding structures needed further surgery or hospitalization, injury to baby, heart attack, blood clot, stroke, . Questions asked and answered. Consent reviewed and signed. PLanned for 10/31. History of Present Illness Chief Complaint: presents for repeat c/s Primary Care Provider: Delmer Castro DO Patient is a 36yowf who presents at 39 1/7 weeks for elective repeat c/s. Declines HEATHER. First delivery was an induction for elevated blood pressures and a c/s for FTP. Prenancy issues IVF/ICSI * [place] (07/15/21 [facility] [place]normal akh *Growth US Q4wks @28wks *Weekly NSTs @36wks *Weekly TAVON's @36wks(ICSI only) Previous c/s--desires repeat. C/S SCHEDULED FOR 10/31/[address] FRAN FLORES COVID TEST ON 10/29/21-negative AMA *Weekly NST's @ 36wks. Pt carrier of CF *fob is negative rhogam candidate Rhogam received 08/15/21 OC S/p Pfizer vaccine #1 09/01 Vaccine #2 pfizer 09/22/21 Flu vaccine received 08/15/21 OC Lab Results OB Labs: Blood Type A Negative 04/10/21 Antibody Screen NEGATIVE 08/15/21 Hemoglobin 11.6 g/dL (12.0-16.0) L 08/15/21 Hematocrit 34.4 % (37-47) L 08/15/21 Mean Corpuscular Volume 85.4 fL (80-100) 04/10/21 Platelet Count 326 K/uL (130-400) 04/10/21 Rubella IgG Antibody Immune (Immune) 04/10/21 Rapid Plasma Reagin Nonreactive (Nonreactive) 04/10/21 Hepatitis B Surface Antigen Neg (Neg) 04/10/21 HIV (1&2) Ab and P24 Ag, 4th Gener Neg (Neg) 04/10/21 Glucose 1 Hour 50 gm Load 130 mg/dl (70-130) 08/15/21 OB Optional Labs: Chlamydia trachomatis RNA NOT DETECTED (NOT DETECTED) 04/10/21 Neisseria gonorrhoeae RNA NOT DETECTED (NOT DETECTED) 04/10/21 Labs Reviewed: pt carrier of CF, spouse negative (03/03/2015) declined genetic testing. Allergies Allergy/AdvReac Type Severity Reaction Status Date / Time No Known Drug Allergies Allergy Verified 10/30/21 09:13 Home Medications Medication Instructions Recorded Confirmed Type prenat.vits,whitley,[id number] 1 tab PO HS 01/24/21 10/30/21 History breast pump #1 ea 08/28/21 10/30/21 Rx docusate sodium 100 mg tablet 100 mg PO QAM 10/28/21 10/30/21 History Patient History Medical History Nausea and vomiting after administration of anesthetic agent No pertinent past medical history Ruptured left tubal ectopic causing hemoperitoneum hx of Surgical History History of esophagogastroduodenoscopy (EGD) History of loop electrical excision procedure (LEEP) S/P section S/P ectopic L salpingectomy S/P tonsillectomy S/P wisdom tooth extraction Family History Mother Diabetes Hypertension Father Hypertension Parkinson disease Other No family history of adverse response to anesthesia Denies family history of Ovarian cancer Prostate cancer Myocardial infarction Breast cancer Colorectal cancer Social History Smoking Status: Former smoker Age Started Using Tobacco: 14; Age Quit Using Tobacco: 27; packs per day: 0.5; Second Hand Exposure: No; Hx Alcohol Use: No (none during , prior to drank occasionally) Hx Substance Use: No Preferred Language: [place] Communication Ability: Effective Visual Impairment: No Limitations Hearing Ability: Normal Can Closing Machine Tender Required: No Beliefs That Will Affect Care: None marital status: marital status details: Justin (36) [phone] Current Living Situation: Spouse Current Living Situation Comment: lives with spouse, and child current occupational status: employed 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 Date GA wks Lbr Lgth wt Sex Type del Anes Place Del Prov ? Comment Unknown Aborted-Spontaneous 08/201608/20/15 Ectopic 10/06/17 39 7lb 12oz M Epidural [facility] Dr. Yan No IOL for elevated blood pressure, c/s for failure to progress. Physical Exam Constitutional: WD/WN, vitals as above Neck: trachea midline, no thyromegaly Respiratory: normal respiratory effort, lungs clear to auscultation Cardiovascular: RRR, no murmur, no edema Extremities: + edema (tr r>l); no calf tenderness Gastrointestinal (Abdomen): soft, gravid, nt, incision c/d/i Coding Level of Care Code None Diagnoses Supervision of elderly multigravida O09.529 resulting from in vitro fertilization, antepartum O09.819 Previous delivery affecting O34.219
[~2021-10-31 07:30] MED LIST changes: +CITRIC ACID/SODIUM CITRATE 15 ML UDC PO SCH; -FOLI1TAB8 PO; +LACTATED RINGER'S 1,000 ML IV SCH; -MTR600X PO; -OXYC-57 PO; -PRENTAB26 PO; +ceFAZolin 2,000 MG in SYRINGE 0 ML IV SCH
[2021-10-31] MEDS ORDERED: LACTATED RINGER'S 1,000 ML IV SCH ×2 (10:00→15:17)
[2021-10-31] MEDS ORDERED: ceFAZolin 2000MG 2,000 MG/15 ML SYR IV SCH (10:15)
[2021-10-31 10:27] LABS: Hematocrit (blood only) 35.5 % (37-47); Hemoglobin 12.1 g/dL (12.0-16.0); Mean Corpuscular Hemoglobin 30.4 pg (25-34); Mean Corpuscular Hgb Conc 34.1 g/dL (32-36); Mean Corpuscular Volume 89.2 fL (80-100); Mean Platelet Volume 8.9 fL (7.4-10.4); Platelet Count 217 K/uL (130-400); RDW Coefficient of Variation 13.7 % (11.5-14.5); RDW Standard Deviation 44.8 fL (36.4-46.3); Red Blood Count 3.98 M/uL (4.2-5.4); White Blood Count 9.48 K/uL (4.8-10.8)
[2021-10-31] MEDS ORDERED: NALOXONE HCL 0.08 MG in SYRINGE 1.8 ML IV PRN (11:22)
[2021-10-31] MEDS ORDERED: NALOXONE HCL 0.4 MG/1 ML VIAL/CARP IV PRN (11:22)
[2021-10-31] MEDS ORDERED: ONDANSETRON INJ 2 MG/ML 2 ML VIAL IV PRN (11:22)
[2021-10-31] MEDS ORDERED: MoRPHine SULFATE 2 MG/ML CARP IV PRN (11:22)
[2021-10-31] MEDS ORDERED: LACTATED RINGER'S 500 ML IV PRN (11:22)
[2021-10-31] MEDS ORDERED: ePHEDrine sulfate 50 MG/ML AMP IV PRN (11:22)
[2021-10-31] MEDS ORDERED: NALOXONE HCL 1 MG in SODIUM CHLORIDE 0.9% 1000ML 1,000 ML IV PRN (11:22)
[2021-10-31] MEDS ORDERED: MoRPHine SULFATE PF 1 MG/ML 10 ML AMP/VIAL INT SPINAL ONE (11:22)
[2021-10-31] MEDS ORDERED: diphenhydrAMINE 50 MG/ML VIAL IV PRN (11:22)
[2021-10-31] MEDS ORDERED: NALBUPHINE HCL INJ 10 MG/ML AMP IV PRN (11:22)
[2021-10-31] MEDS ORDERED: DC INTRASPINAL MORPHINE SCH (11:30)
[2021-10-31] MEDS ORDERED: SODIUM CHLORIDE 0.9% 1000ML 1,000 ML IV SCH (11:30)
[2021-10-31] MEDS ORDERED: NO NARCOTICS OR SEDATIVES SCH (11:30)
[2021-10-31] MEDS ORDERED: fentaNYL citrate 100 MCG/2 ML VIAL ONE (11:42)
[2021-10-31] MEDS ORDERED: OXYTOCIN 10 UNITS/ML 10ML VIAL ONE (11:42)
[2021-10-31] MEDS ORDERED: MoRPHine SULFATE PF 1 MG/ML 10 ML AMP/VIAL ONE (11:42)
[2021-10-31] MEDS ORDERED: PHENYLEPHRINE 100MCG/ML 5ML SYR ONE (12:49)
[2021-10-31] MEDS ORDERED: ePHEDrine sulfate 50 MG/ML SYR ONE (12:49)
[2021-10-31] MEDS ORDERED: CARBOPROST TROMETHAMINE 250 MCG/ML AMPUL ONE (13:04)
--- NOTE | 2021-10-31 13:43 | Operative Report ---
PG Post Operative Report Pre & Post Diagnosis Operation Date: 10/31/21 10:10 <No data on this case meets the specified criteria> preop 1. at 39 weeks 2. hx of previous c/s for ftp 3. Desires repeat postop same I identified the patient and participated in the time-out.: Yes Procedure Operation Date: 10/31/21 10:10 <No data on this case meets the specified criteria> repeat lower transverse Surgeon Arlen Yan MD, FACOG Pig Caster Jeferson Olson MD, Allen Silva, PGY 1 Estimated Blood Loss 800 Findings Consistent with Post-Op Diagnosis lga infant, clear fluid, apgars 9/9. nl uterus/tubes/ovs bilaterally Fluids 1000cc Specimens placenta Drains kirk Anesthesia Type Spinal Disposition Accompanied Patient To Recovery: No Disposition: L&D Indications 37yowf at 39 weeks with hx of for ftp. Desires repeat. Description of Procedure The patient was taken to the operating room where she was identified verbally and by bracelet. She was seated on the operating table where a spinal anesthetic was placed by anesthesia. She was then placed in the supine position with a leftward tilt. A Kirk catheter was placed sterilely. the patient was prepped and draped in a normal standard fashion. the anesthetic was tested and found to be adequate. A time-out was held, identifying correct patient, procedure, positioning and preoperative antibiotics. There were no concerns. A Pfannenstiel skin incision was made with a knife and taken down to the underlying layer of fascia with the knife and Bovie electrocautery. Bleeding was attended to with the Bovie. The fascia was incised in the midline with the knife and taken out laterally with scissors. The superior edge of the fascial incision was grasped, elevated and the underlying layer of rectus muscle was taken off bluntly and with scissors. In a similar fashion, the inferior edge of the fascial incision was grasped, elevated and the underlying layer of rectus muscle was taken off bluntly and with scissors. The muscles were bluntly in the midline. The peritoneum was entered bluntly. The incision was then stretched. The bladder blade was placed. The vesicouterine peritoneum was identified, entered with scissors and taken out laterally with scissors. The bladder flap was created digitally A hysterotomy incision was scored with a knife and the incision was stretched superiorly and inferiorly with the press operator helper's fingers. The operators hand was placed into the incision and the f etal head was delivered atraumatically. No nuchal cord. The nose and mouth were bulb suctioned. the rest of the was then delivered without difficulty. The nose and mouth were again bulb suctioned. The cord was clamped and cut and the infant was then handed off to the awaiting woods rider for drying and attention. Cord blood and segment were obtained. The placenta was Manually extracted. The uterus was exteriorized and cleared of all clot and debris with moistened laparotomy sponges. IM hemobate was injected into the uterus to help with atony. The hysterotomy incision was repaired first in a running locked layer. there was bleeding at the left side apex of the incision that required several sutures to control of 0 Vicryl, we were careful not to go too lateral. We then placed Avista in the area and held pressure for 3 minutes. Posterior cul-de-sac was irrigated and cleared of all clot and debris. The hysterotomy incision was again inspected and bleeding was controlled. the uterus was reinteriorized. Hysterotomy incision was again inspected and found to be hemostatic. Further Gabby was placed at the left side of the incision, pressure held for two minutes. This area was observed for over a minute with no pressure on the fundus and no bleeding noted. Rectus muscles were inspected and hemostatic. The fascia was then reapproximated with 0 Vicryl starting at the edges and meeting in the midline. The subcuticular tissues were copiously irrigated and bleeding was attended to with cautery. The sub-Q was closed with horizontal mattress sutures of 2-0 plain gut. The skin was then closed with 4-0 Vicryl in a subcuticular fashion. All sponge lap and needle counts were correct x 2. The patient was taken to the recovery room in stable condition. I attest to the content of the Intraoperative Record and any orders documented therein. Any exceptions are noted below. OB Procedure Charges 28878
--- NOTE | 2021-10-31 15:16 | Anesthesiology Progress Note ---
Date of Service October 31, 2021 Anesthesia Post Procedure Vital Signs Vital Signs: Temp Pulse Resp BP Pulse Ox 10/31/21 15:10 99 H 98 10/31/21 15:05 83 99 10/31/21 15:00 90 100 10/31/21 14:55 83 154/70 H 10/31/21 14:54 85 100 10/31/21 14:49 84 100 10/31/21 14:46 88 91 10/31/21 14:45 72 162/75 H 10/31/21 14:44 71 100 10/31/21 14:39 89 100 10/31/21 14:35 81 105/56 L 10/31/21 14:34 77 99 10/31/21 14:29 85 100 10/31/21 14:25 82 144/63 H 10/31/21 14:24 85 100 10/31/21 14:20 90 165/78 H 92 10/31/21 14:19 93 H 100 10/31/21 14:14 89 100 10/31/21 14:09 72 100 10/31/21 14:05 75 135/72 10/31/21 14:04 75 100 10/31/21 13:59 85 100 10/31/21 13:58 79 89 L 10/31/21 13:54 80 100 10/31/21 13:49 79 100 10/31/21 13:48 70 136/65 10/31/21 13:45 36.6 C 20 10/31/21 09:19 77 142/67 H 10/31/21 09:07 75 164/82 H 10/31/21 08:56 36.6 C 75 20 142/67 H 10/31/21 08:44 76 169/82 H Transfer of Care Handoff Completed per policy Notes Mental Status: alert / awake / arousable and participated in evaluation Patient Amnestic to Procedure: Yes Nausea / Vomiting: adequately controlled Pain: adequately controlled Airway Patency, RR, SpO2: stable & adequate BP & HR: stable & adequate Hydration State: stable & adequate Anesthetic Complications: no major complications apparent and Pt Satisfied with anesthetic care
[2021-10-31] MEDS ORDERED: DIPHTHERIA/TETANUS/PERTUSSIS 0.5 ML SYR/VIAL IM ONE (15:17)
[2021-10-31] MEDS ORDERED: SUPERCREAM 0.870% 15 GM JAR EXT PRN (15:17)
[2021-10-31] MEDS ORDERED: HYDROCORTISONE ACETATE 25 MG SUPP PR PRN (15:17)
[2021-10-31] MEDS ORDERED: SENNA 8.6 MG TAB PO PRN (15:17)
[2021-10-31] MEDS ORDERED: MAGNESIUM HYDROXIDE SUSP 30 ML UDC PO PRN (15:17)
[2021-10-31] MEDS ORDERED: BENZOCAINE 20% AER SPR 82.5 GM CAN EXT PRN (15:17)
[2021-10-31] MEDS: OXYTOCIN 20 UNITS in LACTATED RINGER'S 1,000 ML IV SCH (15:23)
[2021-10-31] MEDS ORDERED: OXYTOCIN 20 UNITS in LACTATED RINGER'S 1,000 ML IV SCH (15:30)
[2021-10-31] MEDS: KETOROLAC 30 MG/ML VIAL IV PRN ×2 (15:36→21:10)
[2021-10-31] MEDS: SIMETHICONE 80 MG CHEW PO SCH ×2 (18:56→21:11)
[2021-10-31] MEDS: DOCUSATE SODIUM 100 MG CAP PO SCH (21:11)
[2021-11-01] MEDS: OXYTOCIN 20 UNITS in LACTATED RINGER'S 1,000 ML IV SCH (01:17)
[2021-11-01] MEDS: KETOROLAC 30 MG/ML VIAL IV PRN (03:09)
[2021-11-01] MEDS ORDERED: PROMETHAZINE HCL 25 MG in SODIUM CHLORIDE 0.9% 50 ML IV PRN (05:23)
[2021-11-01] MEDS ORDERED: ONDANSETRON INJ 2 MG/ML 2 ML VIAL IV PRN (05:23)
[2021-11-01] MEDS ORDERED: diphenhydrAMINE Capsule 25 MG CAP PO PRN (05:23)
[2021-11-01] MEDS ORDERED: oxyCODONE/ACETAMINOPHEN 5mg/325mg TAB PO PRN (05:23)
[2021-11-01] MEDS ORDERED: diphenhydrAMINE 50 MG/ML VIAL IV PRN (05:23)
[2021-11-01 06:58] LABS: Basophils # (auto) 0.02 K/uL (0-0.2); Basophils % (auto) 0.2 %; Eosinophils # (auto) 0.02 K/uL (0-0.5); Eosinophils % (auto) 0.2 %; Hematocrit (blood only) 27.3 % (37-47); Hemoglobin 9.5 g/dL (12.0-16.0); Immature Granulocytes # (auto) 0.04 K/uL (0.00-0.02); Immature Granulocytes % (auto) 0.3 %; Lymphocytes # (auto) 1.72 K/uL (1.2-3.4); Lymphocytes % (auto) 13.9 %; Mean Corpuscular Hemoglobin 30.8 pg (25-34); Mean Corpuscular Hgb Conc 34.8 g/dL (32-36); Mean Corpuscular Volume 88.6 fL (80-100); Mean Platelet Volume 8.6 fL (7.4-10.4); Monocytes # (auto) 1.07 K/uL (0.11-0.59); Monocytes % (auto) 8.6 %; Neutrophils # (auto) 9.53 K/uL (1.4-6.5); Neutrophils % (auto) 76.8 %; Platelet Count 168 K/uL (130-400); RDW Standard Deviation 44.9 fL (36.4-46.3); Red Blood Count 3.08 M/uL (4.2-5.4)
--- NOTE | 2021-11-01 07:30 | Obstetrical Progress Note ---
Date of Service November 01, 2021 Assessment & Plan (1) delivery delivered: Doing well, day 1. Encourage ambulation. adat. A- so rhogam candidate. Continue to work on breast feeding. Routine care. Day #:: 1 Subjective Ambulation: limited ambulation Voiding: no voiding problems Passing Gas:: Yes Diet Tolerance:: clear liquids Lochia:: Small Feeding Type:: breast feeding Pain controlled, feeling well. Physical Exam Constitutional WD/WN, vitals as above Cardiovascular Extremities: + edema (1+); no calf tenderness Gastrointestinal (Abdomen) soft, slightly distended, nt incision c/d/i ff/nt at u Skin no rashes, warm and dry Psychiatric A+Ox3, euthymic affect Results & Data ([facility]) Vital Signs (Past 12 Hours) Vital Signs Temp Pulse Pulse Resp BP Pulse Ox 11/01/21 05:20 18 93 11/01/21 04:30 18 99 11/01/21 03:10 36.8 C 90 16 145/79 H 99 11/01/21 02:25 18 97 11/01/21 01:20 18 96 11/01/21 00:00 16 97 10/31/21 23:45 37.2 C 80 18 144/83 H 10/31/21 23:20 18 96 10/31/21 21:50 20 96 10/31/21 20:15 37.2 C 91 H 20 149/83 H 99 10/31/21 19:50 20 96
[2021-11-01] MEDS: FERROUS SULFATE 325 MG TAB PO SCH (09:32)
[2021-11-01] MEDS: PRENATAL VITAMIN 1 TAB PO SCH (09:32)
[2021-11-01] MEDS: SIMETHICONE 80 MG CHEW PO SCH ×4 (09:32→19:45)
[2021-11-01] MEDS: IBUPROFEN 600 MG TAB PO PRN ×4 (09:33→22:41)
[2021-11-01] MEDS: DOCUSATE SODIUM 100 MG CAP PO SCH ×2 (09:33→19:46)
[2021-11-01] MEDS ORDERED: bisacodyL 5 MG TABEC PO SCH (20:00)
[2021-11-02] MEDS: IBUPROFEN 600 MG TAB PO PRN ×2 (05:25→11:02)
[2021-11-02 07:16] LABS: Hematocrit (blood only) 28.7 % (37-47); Hemoglobin 9.7 g/dL (12.0-16.0)
--- NOTE | 2021-11-02 08:39 | Obstetrical Progress Note ---
Date of Service November 02, 2021 Assessment & Plan (1) delivery delivered: stable, doing well. desires d/c home. instructions reviewed. f/u 6 wk pp check. hgb stable. breast, rh neg, had rhogam, RI Day #:: 2 Subjective Ambulation: ambulating normally Voiding: no voiding problems Diet Tolerance:: regular diet Lochia:: Small Feeding Type:: breast feeding denies pain issues. Constitutional: + as per Subjective / HPI Physical Exam Constitutional WD/WN, vitals as above Respiratory normal respiratory effort, lungs clear to auscultation Cardiovascular Rate/Rhythm: regular rate and regular rhythm Gastrointestinal (Abdomen) Inspection/Auscultation: abdomen normal to inspection Percussion/Palpation: abdomen soft fundus firm 2 cm below umbilicus incision c/d/i with steris Musculoskeletal nt calves tr edema Neurologic grossly normal Psychiatric A+Ox3, euthymic affect Results & Data ([facility]) Vital Signs (Past 12 Hours) Vital Signs Temp Pulse Resp BP 11/01/21 23:45 98.4 F 91 H 18 138/79
[2021-11-02] MEDS: SIMETHICONE 80 MG CHEW PO SCH (08:43)
[2021-11-02] MEDS: DOCUSATE SODIUM 100 MG CAP PO SCH (08:43)
[2021-11-02] MEDS: FERROUS SULFATE 325 MG TAB PO SCH (08:43)
[2021-11-02] MEDS: PRENATAL VITAMIN 1 TAB PO SCH (08:43)
--- NOTE | 2021-11-03 10:45 | Discharge Summary (DS) ---
DATE OF ADMISSION: 10/31/2021 DATE OF DISCHARGE: 11/02/2021 ADMIT DIAGNOSES: 1. Intrauterine at 39 and 1/7 weeks. 2. History of previous section, desires repeat. DISCHARGE DIAGNOSES: 1. Intrauterine at 39and 1/7 weeks. 2. History of previous section, desires repeat. PROCEDURE: Repeat lower transverse section. HISTORY: The patient is a 36-year-old white female, 4, para 1-0-2-1, who presents at 39 and 1/7 weeks for elective repeat section. She declines trial of labor. First delivery was an induction for elevated blood pressures and a for failure to progress. complicated by IVF/ICSI with normal monitoring. She had a negative COVID test on 10/29/2021. She has advanced maternal age with normal testing. She is Rh negative. She is a carrier for CF with father of baby negative. For the rest of the patient's detailed history and physical, please see her history and physical. ASSESSMENT: This is a patient at 39-1/7 weeks, presenting for elective repeat section. She declines tubal ligation. HOSPITAL COURSE: The patient was admitted and underwent a repeat lower transverse section without difficulty to deliver a viable large for gestational age infant with Apgars of 9 and 9. Normal uterus and tubes and ovaries were noted bilaterally. Estimated blood loss was 800 mL. The patient's postoperative course was uncomplicated. She tolerated a regular diet, ambulated without difficulty, voided after the removal of her Schofield catheter and had her pain well controlled on oral pain medications. Her discharge H and H was 9.7 and 28.7, starting with a hemoglobin of 12.1. She was discharged home on postoperative day #2, to return in 6 weeks for a postoperative check. Job ID: [id number] [facility]
== END 2021-11-02 11:30 | disposition home or self-care (01) | DRG 788 ==
LOC: EDSTATUS 07:30 → 4S1 08:27 → 4S2 17:12
DX: O34.211 Maternal care for low transverse scar from previous cesarean delivery; Z87.891 Personal history of nicotine dependence; Z83.3 Family history of diabetes mellitus; Z3A.39 39 weeks gestation of pregnancy; Z37.0 Single live birth; O36.63X0 Maternal care for excessive fetal growth, third trimester, not applicable or unspecified; O09.813 Supervision of pregnancy resulting from assisted reproductive technology, third trimester

== ENCOUNTER 2021-11-07 16:20 | Observation (INO) ==
[2021-11-07 16:48] LABS: Basophils # (auto) 0.02 K/uL (0-0.2); Basophils % (auto) 0.2 %; Eosinophils # (auto) 0.25 K/uL (0-0.5); Eosinophils % (auto) 2.2 %; Hematocrit (blood only) 32.6 % (37-47); Hemoglobin 10.8 g/dL (12.0-16.0); Immature Granulocytes # (auto) 0.08 K/uL (0.00-0.02); Immature Granulocytes % (auto) 0.7 %; Lymphocytes # (auto) 2.78 K/uL (1.2-3.4); Lymphocytes % (auto) 24.9 %; Mean Corpuscular Hemoglobin 30.1 pg (25-34); Mean Corpuscular Hgb Conc 33.1 g/dL (32-36); Mean Corpuscular Volume 90.8 fL (80-100); Mean Platelet Volume 7.8 fL (7.4-10.4); Monocytes # (auto) 0.78 K/uL (0.11-0.59); Neutrophils # (auto) 7.26 K/uL (1.4-6.5); Platelet Count 336 K/uL (130-400); RDW Coefficient of Variation 13.4 % (11.5-14.5); Red Blood Count 3.59 M/uL (4.2-5.4); White Blood Count 11.17 K/uL (4.8-10.8)
[2021-11-07 17:05] LABS: Alanine Aminotransferase 48 (12-78); Albumin Level 2.6 gm/dl (3.4-5.0); Aspartate Aminotransferase 20 U/L (15-37); BUN Creatinine Ratio 15.2 (10-20); Blood Urea Nitrogen 12 mg/dl (7-18); Carbon Dioxide 27 mmol/L (21-32); Chloride 107 mmol/L (98-107); Est GFR (African American) 108.4 ml/min; Est GFR (Non-African American) 93.5 ml/min; Glucose 86 mg/dl (70-99); Sodium 138 mmol/L (136-145)
[2021-11-07 17:08] LABS: Albumin Globulin Ratio 0.7 (0.9-2); Alkaline Phosphatase 95 U/L (45-117); Bilirubin,Total 0.4 mg/dl (0.2-1); Total Protein 6.6 gm/dl (6.4-8.2)
[2021-11-07] MEDS ORDERED: LABETALOL HCL IV 5 MG/ML 20ML IV STA (17:34)
[2021-11-07] MEDS ORDERED: LABETALOL HCL IV 5 MG/ML 20ML IV ONE (17:38)
[2021-11-07] MEDS ORDERED: MAG SULFATE 4GM BOLUS FROM BAG IV ONE (18:13)
--- NOTE | 2021-11-07 18:16 | History & Physical Report ---
Date of Service November 07, 2021 Assessment & Plan (1) Preeclampsia in period: Plan: 36 y/o 1 wk s/p rLTCS presents with elevated BPs BPs were noted to be severe range on arrival, however persisted even after she was able to calm down. PET labs were obtained and wnl, however due to persistent severe range BPs, IV access was obtained and IV labetalol 20mg ordered. Discussed with severe range BPs, even w/o lab abnormality, would meet criteria for severe gHTN which is recommended to be treated like pre-eclampsia w/ SF per ACOG. 4g mag bolus ordered w/ plan for 2g/hr following for seizure ppx. Will continue to monitor BPs, consider starting PO treatment depending on response. History of Present Illness Chief Complaint: Elevated BP at home, floaters earlier Primary Care Provider: Delmer Juan Matthew, DO 36 y/o s/p rLTCS 10/31 contacted triage line this afternoon w/ complaints of 1 episode of floaters in her vision and on/off headache. She checked her BP at home and noted it to be inthe 170s and called triage line and was instructed to come in. On arrival, pt was visibly upset and crying. Denied GIBSON, vision change, CP, SOB, RUQ/epigastric pain. Does note hx gHTN in last which prompted induction and required meds pp as well per her report. Mod lochia, no b/b issues, no abd pain. Allergies Allergy/AdvReac Type Severity Reaction Status Date / Time No Known Drug Allergies Allergy Verified 10/30/21 09:13 Home Medications Medication Instructions Recorded Confirmed Type prenat.vits,whitley,taw-icfr-ftphr 1 tab PO HS 01/24/21 10/30/21 History breast pump #1 ea 08/28/21 10/30/21 Rx docusate sodium 100 mg tablet 100 mg PO QAM 10/28/21 10/30/21 History oxycodone-acetaminophen 5 mg-325 1 tab PO Q4H PRN #20 tab 11/02/21 Rx mg tablet (Percocet) Patient History Medical History (Updated 11/07/21 @ 19:03 by Radha Quinones MD) Nausea and vomiting after administration of anesthetic agent No pertinent past medical history Ruptured left tubal ectopic causing hemoperitoneum hx of Surgical History (Updated 11/07/21 @ 19:01 by Radha Quinones MD) History of esophagogastroduodenoscopy (EGD) History of loop electrical excision procedure (LEEP) S/P section x2 S/P ectopic L salpingectomy S/P tonsillectomy S/P wisdom tooth extraction Family History Mother Diabetes Hypertension Father Hypertension Parkinson disease Other No family history of adverse response to anesthesia Denies family history of Ovarian cancer Prostate cancer Myocardial infarction Breast cancer Colorectal cancer Social History Smoking Status: Former smoker Age Started Using Tobacco: 14; Age Quit Using Tobacco: 27; packs per day: 0.5; Second Hand Exposure: No; Hx Alcohol Use: No (none during , prior to drank occasionally) Hx Substance Use: No Preferred Language: Greek Communication Ability: Effective Visual Impairment: No Limitations Hearing Ability: Normal Wax Pourer Required: No Beliefs That Will Affect Care: None marital status: marital status details: Justin (36) [phone] Current Living Situation: Spouse and Family Current Living Situation Comment: and son current occupational status: employed 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 Feels Safe at Home: Yes Childhood Exposure to Second-Hand Smoke: No Dental Care, Regularly: Yes Physical Activity Frequency: Does not Exercise Seatbelt Use: always Sunscreen Use: Yes Assistive Devices: None Physical Exam Constitutional: WD/WN, vitals as above Respiratory: normal respiratory effort; no respiratory distress and no labored breathing Gastrointestinal (Abdomen): Inspection/Auscultation: abdomen normal to inspection and + abdominal surgical scar; abdomen not distended Percussion/Palpation: abdomen soft; abdomen nontender and no guarding Results & Data ([facility]) Vital Signs (Past 12 Hours) Vital Signs Pulse BP 11/07/21 17:52 77 171/85 H 11/07/21 17:11 78 172/90 H 11/07/21 16:53 80 179/87 H 11/07/21 16:31 80 188/87 H Laboratory Results 12/24/21 12/24/21 12/24/21 Range/Units 18:00 16:39 16:39 WBC 11.17 H (4.8-10.8) K/uL RBC 3.59 L (4.2-5.4) M/uL Hgb 10.8 L (12.0-16.0) g/dL Hct 32.6 L (37-47) % MCV 90.8 (80-100) fL MCH 30.1 (25-34) pg MCHC 33.1 (32-36) g/dL RDW Std Deviation 44.0 (36.4-46.3) fL RDW Coeff of Shefali 13.4 (11.5-14.5) % Plt Count 336 (130-400) K/uL MPV 7.8 (7.4-10.4) fL Immature Gran % (Auto) 0.7 % Neut % (Auto) 65.0 % Lymph % (Auto) 24.9 % Ransom % (Auto) 7.0 % Eos % (Auto) 2.2 % Baso % (Auto) 0.2 % Neut # (Auto) 7.26 H (1.4-6.5) K/uL Lymph # (Auto) 2.78 (1.2-3.4) K/uL Ransom # (Auto) 0.78 H (0.11-0.59) K/uL Eos # (Auto) 0.25 (0-0.5) K/uL Baso # (Auto) 0.02 (0-0.2) K/uL Immature Gran # (Auto) 0.08 H (0.00-0.02) K/uL Sodium 138 (136-145) mmol/L Potassium 4.0 (3.5-5.1) mmol/L Chloride 107 (98-107) mmol/L Carbon Dioxide 27 (21-32) mmol/L Anion Gap 4.0 (3-11) BUN 12 (7-18) mg/dl Creatinine 0.80 (0.6-1.2) mg/dl Est Cr Clr Drug Dosing Not Reportable Est GFR ( Amer) 108.4 ml/min Est GFR (Non-Af Amer) 93.5 ml/min BUN/Creatinine Ratio 15.2 (10-20) Glucose 86 (70-99) mg/dl Calcium 9.0 (8.5-10.1) mg/dl Total Bilirubin 0.4 (0.2-1) mg/dl AST 20 (15-37) U/L ALT 48 (12-78) Alkaline Phosphatase 95 (45-117) U/L Total Protein 6.6 (6.4-8.2) gm/dl Albumin 2.6 L (3.4-5.0) gm/dl Globulin 4.0 (2.5-4.0) gm/dl Albumin/Globulin Ratio 0.7 L (0.9-2) SARS-CoV-2, RNA, NAAT Pending Coding Level of Care Code None Diagnoses Preeclampsia in period O14.95
[2021-11-07] MEDS: MAGNESIUM SULFATE / WTR 40 GM/1,000 ML BAG IV SCH (18:34)
[2021-11-07] MEDS: LACTATED RINGER'S 1,000 ML IV PRN (18:36)
[2021-11-08] MEDS: ACETAMINOPHEN 500 MG TAB PO PRN ×2 (00:03→11:39)
[2021-11-08] MEDS ORDERED: LABETALOL HCL 100 MG TAB ONE (01:11)
[2021-11-08] MEDS: LABETALOL HCL 200 MG TAB PO SCH ×2 (01:15→08:56)
[2021-11-08] MEDS: LACTATED RINGER'S 1,000 ML IV PRN (05:42)
--- NOTE | 2021-11-08 07:30 | Obstetrical Progress Note ---
Date of Service November 08, 2021 Assessment & Plan (1) Preeclampsia in period: Plan: 36 y/o s/p rCS 1 wk ago admitted w/ pp PET w/ SF -BPs improved on labetalol. Doing ok on mag, no s/s mag tox, good UOP. Will discuss plan w/ on-coming Dr today regarding timing of mag and discharge, pt verbalized understanding Admission and Anticipated Discharge Date Admission Date: November 07, 2021 Subjective Resting comfortably. Started on labetalol 200mg PO BID due to persistent BPs in 150s and a 160, BPs much improved. Mild GIBSON due to crying, but denies vision change, CP, SOB, RUQ/epigastric pain Physical Exam Constitutional: WD/WN, vitals as above Respiratory: normal respiratory effort; no respiratory distress and no labored breathing Results & Data ([facility]) Vital Signs (Past 12 Hours) Vital Signs Temp Pulse Resp BP Pulse Ox 11/08/21 07:22 87 99 11/08/21 07:17 88 98 11/08/21 07:12 85 97 11/08/21 07:07 83 97 11/08/21 07:02 86 99 11/08/21 06:57 98 H 98 11/08/21 06:52 90 93 11/08/21 06:47 85 99 11/08/21 06:42 82 100 11/08/21 06:37 79 98 11/08/21 06:35 83 16 145/76 H 11/08/21 06:34 85 87 L 11/08/21 06:32 82 95 11/08/21 06:27 73 97 11/08/21 06:22 76 98 11/08/21 06:17 76 97 11/08/21 06:12 80 99 11/08/21 06:07 78 99 11/08/21 06:02 77 99 11/08/21 05:57 80 98 11/08/21 05:52 74 97 11/08/21 05:47 80 97 11/08/21 05:42 90 97 11/08/21 05:35 76 128/69 11/08/21 05:34 75 96 11/08/21 05:29 81 95 11/08/21 05:25 16 92 11/08/21 05:24 73 90 11/08/21 05:22 73 88 L 11/08/21 05:19 77 92 11/08/21 05:15 72 88 L 11/08/21 05:14 74 91 11/08/21 05:09 72 90 11/08/21 05:04 69 92 11/08/21 04:59 70 93 11/08/21 04:54 69 92 11/08/21 04:49 70 92 11/08/21 04:44 69 93 11/08/21 04:39 69 92 11/08/21 04:35 78 127/69 11/08/21 04:34 76 93 11/08/21 04:30 98.2 F 18 96 11/08/21 04:01 83 125/71 11/08/21 03:48 75 89 L 11/08/21 03:39 72 89 L 11/08/21 03:32 61 88 L 11/08/21 03:30 16 11/08/21 03:01 81 120/72 11/08/21 02:26 16 11/08/21 02:21 80 85 L 11/08/21 02:01 82 116/56 L 11/08/21 01:58 87 93 11/08/21 01:35 98.6 F 18 11/08/21 01:01 87 168/91 H 11/08/21 00:01 88 153/83 H 11/08/21 00:00 18 11/07/21 23:05 87 152/75 H 11/07/21 23:01 83 156/74 H 11/07/21 23:00 16 11/07/21 22:01 89 137/63 11/07/21 22:00 18 11/07/21 21:01 83 143/71 H 11/07/21 21:00 16 11/07/21 20:50 81 154/78 H 11/07/21 20:45 18 11/07/21 20:35 79 157/77 H 11/07/21 20:20 84 143/74 H 11/07/21 20:06 89 154/69 H 11/07/21 19:50 79 148/76 H 11/07/21 19:35 78 152/76 H 11/07/21 19:30 98.1 F 18 PG Care Time/CCT Total # of Minutes Spent Total Time Spent with Patient: Total time spent is greater than 50% in coordination of care (as documented) at patient's floor/unit and/or counseling patient: Coding Level of Care Code None Diagnoses Preeclampsia in period O14.95
[2021-11-08] MEDS: MAGNESIUM SULFATE / WTR 40 GM/1,000 ML BAG IV SCH (10:44)
[2021-11-08] MEDS ORDERED: Nursing to Pharmacy Communication SCH ×2 (13:30→13:45)
[2021-11-08] MEDS ORDERED: LABETALOL HCL 200 MG TAB PO SCH (13:45)
--- NOTE | 2021-11-11 08:34 | Discharge Summary ---
Date of Service November 11, 2021 Admission HPI Per Admitting Provider 36 y/o s/p rLTCS 10/31 contacted triage line this afternoon w/ complaints of 1 episode of floaters in her vision and on/off headache. She checked her BP at home and noted it to be inthe 170s and called triage line and was instructed to come in. On arrival, pt was visibly upset and crying. Denied GIBSON, vision change, CP, SOB, RUQ/epigastric pain. Does note hx gHTN in last which prompted induction and required meds pp as well per her report. Mod lochia, no b/b issues, no abd pain. Admission Exam (Per Admitting) Constitutional WD/WN, vitals as above Respiratory normal respiratory effort; no respiratory distress and no labored breathing Gastrointestinal (Abdomen) Inspection/Auscultation: abdomen normal to inspection and + abdominal surgical scar; abdomen not distended Percussion/Palpation: abdomen soft; abdomen nontender and no guarding Hospital Course (1) Preeclampsia in period: Pt was diagnosed with pp pre-eclampsia w/ SF and started on magnesium. S he did require IV labetalol 20mg x 1 which did improve her BPs. Overnight, she was started on labetalol 200mg PO BID and tolerated this well and discharged home after approx 24hrs of mag w/ plan for 1 wk BP check Coding Level of Care Code 81520 OBS Care - Discharge Diagnoses Preeclampsia in period O14.95
== END 2021-11-08 16:30 | disposition home or self-care (01) ==
LOC: 4S1 16:20 → OPB 16:20 → 4S1 16:23
DX: O14.95 Unspecified pre-eclampsia, complicating the puerperium

== ENCOUNTER 2024-06-19 05:30 | Inpatient (IN) ==
--- NOTE | 2024-06-01 16:43 | History & Physical Report ---
Date of Service June 01, 2024 Assessment & Plan (1) Previous delivery affecting , antepartum: Plan: Intrauterine at 39 weeks who presents for repeat section and right salpingectomy because of the parity and unwanted fertility. The procedures and the risks were reviewed with the patient and all of her questions were answered to her satisfaction. History of Present Illness Primary Care Provider: Delmer Castro DO Patient is a 38-year-old 5 para 2-0-2-2 female EDC 06/22/2024 who presents for repeat section and right salpingectomy. (She had left salpingectomy for ectopic in the past). This was an IVF . has been complicated by advanced maternal age, LGA fetus, and mild renal pelvis dilation of the fetus. On echo, there was mild tricuspid regurgitation and mild ductal arch constriction but was cleared for delivery at [facility]. The is to have a repeat echocardiogram done after delivery. testing otherwise has been reassuring. Allergies Allergy/AdvReac Type Severity Reaction Status Date / Time No Known Drug Allergies Allergy Verified 05/31/24 08:47 Home Medications Medication Instructions Recorded Confirmed Type 21-iron fu-folic acid PO 11/19/23 05/31/24 History [ Complete] Patient History Medical History (Updated 04/27/24 @ 13:18 by Clari Ann MD, FACOG) History of chicken pox Female infertility Endometriosis Cystic fibrosis carrier Preeclampsia in period resulting from in vitro fertilization, antepartum Ruptured left tubal ectopic causing hemoperitoneum hx of Surgical History History of loop electrical excision procedure (LEEP) History of esophagogastroduodenoscopy (EGD) S/P wisdom tooth extraction S/P ectopic S/P section S/P tonsillectomy Family History Mother Diabetes Hypertension Kidney failure Father Hypertension Parkinson disease Other No family history of adverse response to anesthesia Denies family history of Ovarian cancer Prostate cancer Myocardial infarction Breast cancer Colorectal cancer Social History (Updated 11/19/23 @ 08:52 by Daisy Corona) Smoking Status: Former smoker Age Started Using Tobacco: 14; Age Quit Using Tobacco: 27; packs per day: 0.5; Second Hand Exposure: No; Do You Dip or Chew Tobacco: No; Hx Alcohol Use: No (none during , prior to drank occasionally) Hx Substance Use: No Preferred Language: Japanese Communication Ability: Effective Visual Impairment: No Limitations Hearing Ability: Normal Care Transition Manager Required: No Beliefs That Will Affect Care: None marital status: marital status details: Justin Milan(38) [phone] Current Living Situation: Spouse and Family Current Living Situation Comment: and 2 sons, cat-spouse changing litter current occupational status: employed 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 How many Children do You have: 2 Feels Safe at Home: Yes Childhood Exposure to Second-Hand Smoke: No Diet: regular caffeine: Yes during the past year weight has: remained stable Dental Care, Regularly: Yes Physical Activity Frequency: Daily Seatbelt Use: always Sunscreen Use: Yes Assistive Devices: Contacts and Glasses Review of Systems All systems reviewed & are unremarkable except as noted in HPI & below Physical Exam Constitutional: WD/WN, vitals as above Respiratory: normal respiratory effort, lungs clear to auscultation Cardiovascular: RRR, no murmur, no edema Psychiatric: A+Ox3, euthymic affect Genitourinary: OB Exam Abdomen: + fundal height (term), + vertex and + estimated weight (9-10 pounds) OB Exam Monitor Tracing: + external FHT monitor used, + external uterine monitor used, + category I and + normal FHT variability Coding Level of Care Code None Diagnoses Previous delivery affecting , antepartum O34.219
--- NOTE | 2024-06-05 15:09 | Anesthesiology Consultation ---
Date of Service June 05, 2024 Assessment & Plan (1) Encounter for pre-operative examination: - neuraxial anesthesia 2016 and 2020: L3-L4. - Per traffic circuit engineer on 06/05/24: No known infectious disease contacts, current infectious disease symptoms in past 10 days or COVID positive test result in the past 30 days. Chart Review Chart Review: data entry initiated History Surgery Operation Date: 06/19/24 09:15 Proposed Procedures p Section in LD (Delivery of Baby Through Abdominal Incision) - Clari Ann MD, FACOG s Bilateral Tubal Ligation - Clari Ann MD, FACOG Height/Weight Height: 5 ft 7 in Weight: 92.986 kg Allergies Allergy/AdvReac Type Severity Reaction Status Date / Time No Known Drug Allergies Allergy Verified 06/05/24 13:26 Medications Home Medications Medication Instructions Recorded Confirmed Last Taken 21-iron fu-folic acid 1 tab PO QPM 11/19/23 06/05/24 Unknown [ Complete] aspirin 81 mg capsule 81 mg PO DAILY 06/05/24 06/05/24 Unknown docusate sodium 100 mg capsule 100 mg PO QPM 06/05/24 06/05/24 Unknown (Colace) Past Medical History Medical History (Updated 06/05/24 @ 15:11 by Maria Del Rosario Johnson PA-C) 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 Endometriosis Female infertility History of chicken pox History of COVID-19 (2020) no hosp; resolved History of pre-eclampsia PONV (postoperative nausea and vomiting) resulting from in-vitro fertilization hx Ruptured left tubal ectopic causing hemoperitoneum hx of Past Family History Family History Mother Diabetes Hypertension Kidney failure Father Hypertension Parkinson disease Other No family history of adverse response to anesthesia Denies family history of Ovarian cancer Prostate cancer Myocardial infarction Breast cancer Colorectal cancer Past Surgical History Surgical History History of esophagogastroduodenoscopy (EGD) History of loop electrical excision procedure (LEEP) S/P section x2 S/P ectopic L salpingectomy S/P tonsillectomy S/P wisdom tooth extraction Social History Smoking Status: Former smoker tobacco type: cigarettes Do You Dip or Chew Tobacco: No Smoking End Date: quit > 10 yrs ago Hx Alcohol Use: No (none during , prior to drank occasionally) Hx Substance Use: No substance use type: does not use
[2024-06-19] MEDS: LACTATED RINGER'S 1,000 ML IV SCH (06:00)
[2024-06-19 06:14] LABS: Basophils # (auto) 0.06 K/uL (0.00-0.20); Basophils % (auto) 0.5 %; Eosinophils # (auto) 0.07 K/uL (0.00-0.50); Eosinophils % (auto) 0.6 %; Hematocrit (blood only) 33.5 % (37.0-47.0); Hemoglobin 11.6 g/dl (12.0-16.0); Immature Granulocytes # (auto) 0.13 K/uL (0.01-0.20); Immature Granulocytes % (auto) 1.2 %; Lymphocytes # (auto) 2.11 K/uL (1.20-3.40); Lymphocytes % (auto) 19.1 %; Mean Corpuscular Hemoglobin 29.8 pg (25.0-34.0); Mean Corpuscular Hgb Conc 34.6 g/dL (32.0-36.0); Mean Corpuscular Volume 86.1 fL (80.0-100.0); Mean Platelet Volume 8.3 fL (9.4-12.4); Monocytes # (auto) 0.96 K/uL (0.11-0.59); Monocytes % (auto) 8.7 %; Neutrophils # (auto) 7.69 K/uL (1.40-6.50); Neutrophils % (auto) 69.9 %; Platelet Count 228 K/uL (130-400); RDW Coefficient of Variation 13.8 % (11.5-14.5); RDW Standard Deviation 42.7 fL (36.4-46.3); Red Blood Count 3.89 M/uL (4.20-5.40); White Blood Count 11.02 K/ul (4.8-10.8)
[2024-06-19] MEDS: ceFAZolin 3,000 MG/72.5 ML BAG IV SCH (07:15)
[2024-06-19] MEDS: CITRIC ACID/SODIUM CITRATE 15 ML UDC PO SCH (07:16)
--- NOTE | 2024-06-19 07:29 | History & Physical Bridge Note ---
Date of Service June 19, 2024 History & Physical Bridge Note I have examined the patient, reviewed the History & Physical and in the interval since the performance of the History & Physical I have noted the following changes of clinical significance: no changes noted
[2024-06-19] MEDS ORDERED: MoRPHine SULFATE PF 1 MG/ML 10 ML AMP/VIAL ONE (07:35)
[2024-06-19] MEDS: ACETAMINOPHEN 500 MG TAB PO STA (07:39)
[2024-06-19] MEDS ORDERED: PHENYLEPHRINE 100MCG/ML 10ML SYR IV ONE (08:14)
[2024-06-19] MEDS ORDERED: OXYTOCIN 10 UNITS/ML VIAL ONE ×3 (08:18→08:44)
[2024-06-19] MEDS ORDERED: MEPERIDINE HCL 25 MG/ML CARP/VIAL IV PRN (08:42)
[2024-06-19] MEDS ORDERED: MoRPHine SULFATE 2 MG/ML CARP IV PRN (08:42)
[2024-06-19] MEDS ORDERED: ONDANSETRON INJ 2 MG/ML 2 ML VIAL IV PRN ×2 (08:42→09:20)
[2024-06-19] MEDS ORDERED: diphenhydrAMINE 50 MG/ML VIAL IV PRN (08:42)
[2024-06-19] MEDS ORDERED: NALOXONE HCL 0.4 MG/1 ML VIAL/CARP IV PRN (08:42)
[2024-06-19] MEDS ORDERED: METOCLOPRAMIDE HCL 10 MG in SODIUM CHLORIDE 0.9% 50 ML IV PRN (08:42)
[2024-06-19] MEDS ORDERED: LACTATED RINGER'S 500 ML IV PRN (08:42)
[2024-06-19] MEDS ORDERED: PROMETHAZINE HCL 12.5 MG in SODIUM CHLORIDE 0.9% 50 ML IV PRN (08:42)
[2024-06-19] MEDS ORDERED: ACETAMINOPHEN 1,000 MG/100 ML VIAL IV PRN (08:42)
[2024-06-19] MEDS ORDERED: ePHEDrine sulfate 50 MG/ML AMP IV PRN (08:42)
[2024-06-19] MEDS ORDERED: NALOXONE HCL 0.08 MG in SYRINGE 1.8 ML IV PRN (08:42)
[2024-06-19] MEDS ORDERED: NALBUPHINE HCL 5 MG in SYRINGE 0 ML IV PRN (08:42)
[2024-06-19] MEDS ORDERED: NALOXONE HCL 1 MG in SODIUM CHLORIDE 0.9% 1,000 ML IV PRN (08:42)
[2024-06-19] MEDS ORDERED: HYDROmorphone INJ 0.5 MG/0.5 ML SYR IV PRN (08:42)
[2024-06-19] MEDS ORDERED: DC INTRASPINAL MORPHINE SCH (08:45)
[2024-06-19] MEDS ORDERED: NO NARCOTICS OR SEDATIVES SCH (08:45)
[2024-06-19] MEDS ORDERED: ONDANSETRON INJ 2 MG/ML 2 ML VIAL ONE (09:05)
--- NOTE | 2024-06-19 09:13 | Post Operative Brief Note ---
Immediate Post Op Note Date of Surgery June 19, 2024 Pre & Post Diagnosis Operation Date: 06/19/24 07:30 Pre-Op Dx- IUP at term, prior C/S x2 unwanted fertility Post-Op Dx- same plus delivery of a viable male infant I identified the patient and participated in the time-out.: Yes Procedure Operation Date: 06/19/24 07:30 Actual Procedures p Section in LD with result of Live male child at 0816 - Clari Ann MD, FACOG Right salpingectomy and removal of remnant of left fallopian tube Surgeon Clari Ann MD, FACOG Fringing Machine Operator Tiffanie Gallegos MD Quantitative Blood Loss (QBL) 733 Findings Consistent with Post-Op Diagnosis Specimens Specimen Description: A: Placenta B: Cord Blood C: Right Fallopian Tube D: Portion of Left Fallopian Tube Drains Schofield Catheter (Placed in OR after spinal, patient tolerated well. Draining clear yellow urine.) Anesthesia Type Spinal Complications none Disposition Accompanied Patient To Recovery: Yes Disposition: L&D
[2024-06-19] MEDS ORDERED: BENZOCAINE 20% SPRY 85 APPLN/85 GM CAN EXT PRN (09:20)
[2024-06-19] MEDS ORDERED: SENNA 8.6 MG TAB PO PRN (09:20)
[2024-06-19] MEDS ORDERED: HYDROCORTISONE ACETATE 25 MG SUPP PR PRN (09:20)
[2024-06-19] MEDS ORDERED: MAGNESIUM HYDROXIDE SUSP 30 ML UDC PO PRN (09:20)
[2024-06-19] MEDS ORDERED: CALCIUM CARBONATE 500 MG CHEWABLE TAB PO PRN (09:20)
--- NOTE | 2024-06-19 10:01 | Operative Report ---
PG Post Operative Report Pre & Post Diagnosis Operation Date: 06/19/24 07:30 Pre-Op Diagnosis: IUP at term, prior C/S x2 unwanted fertility Post-Op Diagnosis: IUP at term, prior C/S x2 unwanted fertility with delivery of a viable male I identified the patient and participated in the time-out.: Yes Procedure Operation Date: 06/19/24 07:30 Actual Procedures p Section in LD with result of Live male child at 0816 - Clari Ann MD, FACOG Surgeon Clari Ann MD, FACOG End Finder Twisting Department Tiffanie Gallegos MD Estimated Blood Loss 733 (QBL) Findings Consistent with Post-Op Diagnosis Uterus is gravid consistent with a term in size bilateral ovaries are grossly normal. The right fallopian tube was also normal. Left fallopian tube had been resected but the fimbriated end and a proximal portion of the tube are still present. The bladder was adherent high on the anterior surface of the uterus which was dissected free and placed behind the bladder blade. Specimens placenta Drains Schofield catheter to straight drainage Anesthesia Type Spinal Complications none Disposition Accompanied Patient To Recovery: Yes Disposition: L&D Indications Intrauterine at 39 4/7 weeks gestation Prior section x 2 Multiparity and unwanted fertility. Description of Procedure After the patient received effective subarachnoid block she was prepped and draped in usual sterile fashion. A low transverse skin incision with a scalpel was made through her prior scar. This was carried to the fascia with the same scalpel. The fascial incision was then extended with Langston scissors and the edges were grasped with Mark clamps. The underlying rectus muscles were bluntly sharply dissected off of the overlying fascia. The peritoneum was entered bluntly, and the bladder placed behind the bladder blade. It was adherent high on the anterior wall of the uterus and this was taken down with Metzenbaum scissors. The lower uterine segment was then entered with a scalpel and extended transversely by stretching the incision in a cephalad caudad direction. Membranes were ruptured for clear fluid. The infant was delivered from the vertex presentation with assistance with the vacuum because of size of the baby's head and scar tissue present. The right rectus muscle was divided with Langston scissors to assist in delivering the head. With moderate fundal pressure, the rest the infant then delivered with ease. The cord was clamped and cut and the infant was handed off to Dr. Sebastian who was in attendance as tube and rod straightener along with the nursery team. He was vigorous crying and moving all 4 limbs. The placenta was manually removed and the uterus exteriorized to cover the clean lap sponge. Uterine cavity was explored and found to be free of any retained tissue or membranes. Uterus was closed in a single layer with 0 Monocryl. There was bleeding from the area of adhesions that was just above the uterine incision. Several [id number] stitches were used to control the bleeding and Gabby was then used for the serosal oozing that was present. Pressure was applied to the area with a damp lap sponge while the salpingectomy was being done. The right fallopian tube was identified and followed to its fimbriated end using the LigaSure device, the fallopian tube was removed in its entirety ending on its insertion at the cornua. There had been a partial salpingectomy done on the left fallopian tube in the past but fimbriated end was still present as well as a large portion of tube still attached to the cornua. The LigaSure device was then used to remove the fimbriated end of the left tube as well as the remaining proximal portion of fallopian tube to its insertion on the cornua. The salpingectomy sites showed excellent hemostasis. The uterus was then gently placed back inside the abdominal cavity. The gutters were evaluated once more as well as the salpingectomy sites, and hemostasis appeared to be excellent. There continue to be some oozing on the area of adhesiolysis and another dose of Gabby was applied to this area. There also appeared to be a bleeding site on the peritoneal reflection about the bladder, this was controlled with a [id number] stitch of 0 Monocryl. Hemostasis at this point was then excellent. The divided right rectus muscle was reapproximated with 0 Monocryl in a running fashion. The fascia was then closed in a running fashion with 0 Vicryl. Nadege's fascia was brought together with a running stitch of 1 chromic. After irrigating the subcutaneous layer, the skin edges were reapproximated with a subcuticular stitch of 4-0 Vicryl. Mother and infant were doing well after section and were stable upon arrival back in labor and delivery I attest to the content of the Intraoperative Record and any orders documented therein. Any exceptions are noted below. OB Procedure Charges [id number] Add on Tubal for C/S
[2024-06-19] MEDS: KETOROLAC 30 MG/ML VIAL IV PRN (10:06)
[2024-06-19] MEDS: ACETAMINOPHEN 325 MG TAB PO SCH (10:51)
[2024-06-19] MEDS: IBUPROFEN 600 MG TAB PO SCH (10:53)
--- NOTE | 2024-06-19 11:05 | Anesthesiology Progress Note ---
Date of Service June 19, 2024 Anesthesia Post Procedure Vital Signs Vital Signs: Temp Pulse Resp BP Pulse Ox 06/19/24 11:02 101 H 99 06/19/24 10:57 93 H 113/63 97 06/19/24 10:52 87 98 06/19/24 10:47 94 H 113/57 L 96 06/19/24 10:42 89 98 06/19/24 10:37 91 H 110/56 L 98 06/19/24 10:32 91 H 96 06/19/24 10:27 95 H 98 06/19/24 10:22 87 98 06/19/24 10:20 36.9 C 87 16 105/59 L 97 06/19/24 10:17 89 105/59 L 97 06/19/24 10:12 81 97 06/19/24 10:10 36.9 C 83 16 110/58 L 97 06/19/24 10:07 84 110/58 L 98 06/19/24 10:02 88 98 06/19/24 09:57 99 06/19/24 09:57 88 06/19/24 09:57 79 111/60 06/19/24 09:52 89 99 06/19/24 09:47 84 112/58 L 98 06/19/24 09:42 86 98 06/19/24 09:37 84 109/59 L 99 06/19/24 09:32 87 99 06/19/24 09:28 94 H 90 06/19/24 09:27 100 06/19/24 09:27 91 H 06/19/24 09:27 88 113/69 06/19/24 09:22 85 100 06/19/24 09:20 36.9 C 85 16 120/59 L 99 06/19/24 09:17 100 06/19/24 09:17 89 06/19/24 09:17 85 120/59 L 06/19/24 07:07 93 H 139/72 06/19/24 05:42 36.8 C 18 06/19/24 05:37 96 H 138/75 Pain Intensity Abdomen: Pain Intensity: 2 Transfer of Care Handoff Completed per policy Notes Mental Status: alert / awake / arousable and participated in evaluation Nausea / Vomiting: adequately controlled Pain: adequately controlled Airway Patency, RR, SpO2: stable & adequate BP & HR: stable & adequate Hydration State: stable & adequate Neuraxial Anesthesia: was administered and sensory block is resolving Anesthetic Complications: no major complications apparent and Pt Satisfied with anesthetic care
[2024-06-19] MEDS: OXYTOCIN 20 UNITS/LR 1,002 ML IV SCH (11:06)
[2024-06-19] MEDS: ACETAMINOPHEN 500 MG TAB ONE (11:11)
[2024-06-19] MEDS: SIMETHICONE 80 MG CHEW PO SCH (13:05)
[2024-06-19] MEDS: DOCUSATE SODIUM 100 MG CAP PO SCH (20:05)
[2024-06-20] MEDS ORDERED: diphenhydrAMINE Capsule 25 MG CAP PO PRN (02:32)
[2024-06-20] MEDS ORDERED: diphenhydrAMINE 50 MG/ML VIAL IV PRN (02:32)
[2024-06-20] MEDS ORDERED: PROMETHAZINE HCL 12.5 MG in SODIUM CHLORIDE 0.9% 50 ML IV PRN (02:32)
[2024-06-20] MEDS ORDERED: HYDROmorphone INJ 0.5 MG/0.5 ML SYR IV PRN (02:32)
[2024-06-20] MEDS: KETOROLAC 30 MG/ML VIAL IV SCH (02:57)
[2024-06-20 06:34] LABS: Basophils # (auto) 0.04 K/uL (0.00-0.20); Basophils % (auto) 0.2 %; Eosinophils # (auto) 0.13 K/uL (0.00-0.50); Eosinophils % (auto) 0.7 %; Hematocrit (blood only) 25.5 % (37.0-47.0); Hemoglobin 8.7 g/dl (12.0-16.0); Immature Granulocytes # (auto) 0.14 K/uL (0.01-0.20); Immature Granulocytes % (auto) 0.8 %; Lymphocytes # (auto) 0.94 K/uL (1.20-3.40); Lymphocytes % (auto) 5.2 %; Mean Corpuscular Hemoglobin 29.6 pg (25.0-34.0); Mean Corpuscular Hgb Conc 34.1 g/dL (32.0-36.0); Mean Corpuscular Volume 86.7 fL (80.0-100.0); Monocytes # (auto) 0.89 K/uL (0.11-0.59); Monocytes % (auto) 4.9 %; Neutrophils # (auto) 16.04 K/uL (1.40-6.50); Neutrophils % (auto) 88.2 %; Platelet Count 166 K/uL (130-400); RDW Coefficient of Variation 14.1 % (11.5-14.5); RDW Standard Deviation 43.8 fL (36.4-46.3); Red Blood Count 2.94 M/uL (4.20-5.40); White Blood Count 18.18 K/ul (4.8-10.8)
--- NOTE | 2024-06-20 08:03 | Obstetrical Progress Note ---
Date of Service <Zeeshan Tirado MD - Last Filed: 06/20/24 08:18> June 20, 2024 Assessment & Plan <Zeeshan Tirado MD - Last Filed: 06/20/24 08:18> (1) Encounter for assessment: visit type: exam and care immediately after delivery Qualified Code(s): Z39.0 - Encounter for care and examination of mother immediately after delivery Plan Pt is a 38 y/o female who is now PPD#1 following repeat LTCS + tubal at 39 weeks. PPD 1: stable, routine management -Patient is voiding and ambulating on their own power -Pain is well controlled on as needed analgesia -Tolerating regular diet without nausea or vomiting -Planned to Breast feed * Pt is Rhesus negative (A-) will need 2nd dose of Rhogam after baby's blood type is available. * Reassess d/c readiness tomorrow * 6 weeks OB outpatient follow-up <Justin Koo MD - Last Filed: 06/20/24 08:27> (1) Encounter for assessment: Subjective <Zeeshan Tirado MD - Last Filed: 06/20/24 08:18> Ambulation: ambulating normally Voiding: no voiding problems Diet Tolerance:: regular diet Lochia:: Moderate Feeding Type:: breast feeding Pt is a 38 y/o female who is now PPD#1 following repeat LTCS with tubal at 39 weeks. Reports feeling well overall this morning. minimal abdominal cramping and 5/10 pain, well managed on analgesics. Voiding ok. Tolerating meals and able to ambulate some. passing gas but no bowel movements. Some persistent lochia with overall improvement as of this morning. Breast feeding. Review of Systems -Denies fever or chills -Denies dyspnea, chest pain, or palpitations -Denies breast pain -Denies dysuria - occasional headaches but not now, her BP is WNL pt says that it could be lack of caffeine. Denies any changes in vision Physical Exam <Zeeshna Tirado MD - Last Filed: 06/20/24 08:18> General: Alert and oriented. No acute distress Cardiac: Regular rate and rhythm, no murmurs appreciated Respiratory: Lungs clear to auscultation bilaterally, No increased work of breathing Abdominal: Soft, non-tender, non-distended. Bowel sounds present. Uterus: Uterine fundus firm, palpable below umbilicus. surgical site is clean - no signs of bleeding or infection. Extremities: No lower extremity edema, calves non-tender bilaterally Results & Data <Zeeshan Tirado MD - Last Filed: 06/20/24 08:18> Vital Signs (Past 12 Hours) Vital Signs Temp Pulse Resp BP Pulse Ox O2 Del Method 06/20/24 04:15 36.8 C 94 H 18 110/69 97 Room Air 06/20/24 02:55 16 95 06/20/24 02:00 18 96 06/20/24 01:00 37.0 C 98 H 18 103/66 97 Room Air 06/20/24 00:56 18 97 06/20/24 00:00 16 96 06/19/24 23:00 18 97 06/19/24 22:00 18 96 06/19/24 21:02 18 97 06/19/24 20:07 18 97 Supervising Physician <Justin Koo MD - Last Filed: 06/20/24 08:27> Co-Signing Physician Notes Patient seen with resident and agree with the above findings and plan. Continue routine care Resident Activity Tracking <Zeeshan Tirado MD - Last Filed: 06/20/24 08:18> Resident Involvement: Resident Care Provided Care Provided: OB Delivery
[2024-06-20] MEDS: FERROUS SULFATE 325 MG TAB PO SCH (10:32)
[2024-06-20] MEDS: PRENATAL VITAMIN 1 TAB PO SCH (10:32)
[2024-06-20] MEDS: oxyCODONE HCL IR 5 MG TAB (IMMEDIATE RELEASE) PO PRN (10:34)
[2024-06-20] MEDS: LACTATED RINGER'S 1,000 ML IV SCH ×2 (19:34→19:35)
[2024-06-20] MEDS: DIPHTHER/TETAN/PERTUS Vaccine (Tdap, Adol/Adult) 0.5mL IM ONE (19:35)
[2024-06-20] MEDS: MoRPHine SULFATE PF 1 MG/ML 10 ML AMP/VIAL INT SPINAL ONE (19:35)
[2024-06-20] MEDS: SODIUM CHLORIDE 0.9% 1,000 ML IV SCH (19:35)
[2024-06-20] MEDS: bisacodyL 5 MG TABEC PO SCH (22:13)
[2024-06-20] MEDS: bisacodyL 5 MG TABEC PO ONE (22:23)
[2024-06-21 06:06] LABS: Hematocrit (blood only) 23.9 % (37.0-47.0); Hemoglobin 8.1 g/dl (12.0-16.0)
[2024-06-21] MEDS ORDERED: PROMETHAZINE 12.5 MG/50.5 ML BAG IV PRN (06:46)
--- NOTE | 2024-06-21 06:58 | Obstetrical Progress Note ---
Date of Service <Zeeshan Tirado MD - Last Filed: 06/21/24 07:13> June 21, 2024 Assessment & Plan <Zeeshan Tirado MD - Last Filed: 06/21/24 07:13> (1) Encounter for assessment: visit type: exam and care immediately after delivery Qualified Code(s): Z39.0 - Encounter for care and examination of mother immediately after delivery Plan Pt is a 38 y/o female who is now PPD#2 following repeat LTCS + tubal at 39 weeks. - redness and tenderness around umbilicus (about 8cms) likely due to possible small underlying hematoma or collection / local inflammation from surgery. Try antibiotics. No hx of pen. allergy. Pt is Rhesus negative (A-) received 2nd dose of Rhogam yesterday ( baby's blood type A+) PPD2: stable, routine management -Patient is voiding and ambulating on their own power -Pain is well controlled on as needed analgesia -Tolerating regular diet without nausea or vomiting -Planned to Breast feed * Apply local cold compression with ice at umbilicus. * PO Cephalexin 500mg [id number] * recheck vitals in 3-4 hours. * Reassess d/c readiness * 6 weeks OB outpatient follow-up <Radha Quinones MD - Last Filed: 06/21/24 07:27> (1) Encounter for assessment: Subjective <Zeeshan Tirado MD - Last Filed: 06/21/24 07:13> Ambulation: ambulating normally Voiding: no voiding problems Diet Tolerance:: regular diet Lochia:: Moderate Feeding Type:: breast feeding Pt is a 38 y/o female who is now PPD#2 following repeat at 39 weeks. Reports feeling well overall this morning. Patient describes that she felt 'ripping sensation in the abdomen, there is redness and warmth and soreness around umbilicus, 6-7/10 pain. Pain managed on analgesics. Voiding ok. Tolerating meals and able to ambulate some. passing gas but no bowel movements. Some persistent lochia with overall improvement as of this morning. Breast f eeding. He BP was slightly elevated at 149/74 and tachy 116 but no fevers overnight. Review of Systems -Denies fever or chills -Denies dyspnea, chest pain, or palpitations -Denies breast pain -Denies dysuria -Denies headache or changes in vision Physical Exam <Zeeshan Tirado MD - Last Filed: 06/21/24 07:13> General: Alert and oriented. No acute distress Cardiac: Regular rate and rhythm, no murmurs appreciated Respiratory: Lungs clear to auscultation bilaterally, No increased work of breathing Abdominal: Soft, non-distended. Bowel sounds present. some redness and warmth and tenderness around umbilicus, no rebound , no guarding some darkening and slight firmness at umbilicus. Uterus: Uterine fundus firm, palpable below umbilicus. surgical site is clean - no signs of bleeding or infection. Extremities: No lower extremity edema, calves non-tender bilaterally Results & Data <Zeeshan Tirado MD - Last Filed: 06/21/24 07:13> Vital Signs (Past 12 Hours) Vital Signs Temp Pulse Resp BP Pulse Ox O2 Del Method 06/21/24 06:30 105 H 135/78 06/21/24 00:00 36.8 C 116 H 16 149/74 H 99 Room Air 06/20/24 19:30 36.8 C 112 H 16 135/70 99 Room Air Supervising Physician <Radha Quinones MD - Last Filed: 06/21/24 07:27> Co-Signing Physician Notes Resident Physician Supervision Note: I interviewed and examined the patient. Discussed with Dr. Bradshaw and agree with findings and plan as documented in the note. Any exceptions or clarifications are listed here: POD2 s/p rltcs. Pt noted area of redness and warmth around umbilicus after a small ripping sensation last night. Has not changed since she first noted it. Is localized to malini-umbilical area, the actual umbilicus appears slightly bruised. Incision is c/d/i. BP mild range over night but was just after ambulating from bathroom and discussing baby needing formula supplementation, repeat wnl. Op report notes having to divide R rectus so ?if small hematoma. H/H stable. Will start antibx and ice area, re- eval. Pt does desire dc but baby wt is down a bit. If strongly desires, I think ok to dc w/ keflex and have outpt f/u on wed but will see how it looks again later this morning Documented By: Radha Quinones MD Resident Activity Tracking <Zeeshan Tirado MD - Last Filed: 06/21/24 07:13> Resident Involvement: Resident Care Provided Care Provided: OB Delivery
[2024-06-21] MEDS: cephALEXin 500 MG CAP PO SCH (08:44)
[2024-06-21] MEDS ORDERED: bisacodyL 10 MG SUPP PR PRN (09:22)
[2024-06-21] MEDS: ACETAMINOPHEN 325 MG TAB PO PRN (10:17)
[2024-06-21] MEDS: IBUPROFEN 600 MG TAB PO PRN (16:23)
--- NOTE | 2024-06-22 12:59 | Discharge Summary ---
Date of Service June 22, 2024 Admission HPI Per Admitting Provider Patient is a 38-year-old 5 para 2-0-2-2 female EDC 06/[birth year]24 who presents for repeat section and right salpingectomy. (She had left salpingectomy for ectopic in the past). This was an IVF . has been complicated by advanced maternal age, LGA fetus, and mild renal pelvis dilation of the fetus. On echo, there was mild tricuspid regurgitation and mild ductal arch constriction but was cleared for delivery at [facility]. The infant is to have a repeat echocardiogram done after delivery. testing otherwise has been reassuring. Admission Exam (Per Admitting) Constitutional WD/WN, vitals as above Respiratory normal respiratory effort, lungs clear to auscultation Cardiovascular RRR, no murmur, no edema Psychiatric A+Ox3, euthymic affect Genitourinary OB Exam Abdomen: + fundal height (term), + vertex and + estimated weight (9-10 pounds) OB Exam Monitor Tracing: + external FHT monitor used, + external uterine monitor used, + category I and + normal FHT variability Discharge Data Consultations 06/19/24 05:31 Consult Anesthesiology Stat Procedures Performed Operation Date: 06/19/24 07:30 Actual Procedures p Section in LD with result of Live male child at 0816 - Clari Ann MD, [facility] Course (1) Encounter for assessment: Plan Pt is a 38 y/o female who is now PPD#2 following repeat LTCS + tubal at 39 weeks. - redness and tenderness around umbilicus (about 8cms) likely due to possible small underlying hematoma or collection / local inflammation from surgery. Try antibiotics. No hx of pen. allergy. Pt is Rhesus negative (A-) received 2nd dose of Rhogam yesterday ( baby's blood type A+) PPD2: stable, routine management -Patient is voiding and ambulating on their own power -Pain is well controlled on as needed analgesia -Tolerating regular diet without nausea or vomiting -Planned to Breast feed * Apply local cold compression with ice at umbilicus. * PO Cephalexin 500mg [id number] * recheck vitals in 3-4 hours. * Reassess d/c readiness * 6 weeks OB outpatient follow-up Discharge Plan Discharge Items Patient Disposition: Home - Self-Care Reason For Visit: History of Section, Request for Steriliza Discharge Diagnosis: c/s Activity: Per Instructions section Non-emergency contact: Holiday Detector Operator Call non-emergency contact if: your pain is not controlled Follow-up/Referrals: Delmer Castro DO [Primary Care Provider] - Diet: Regular OB Addtl Attending Provider Instructions: ACTIVITY RECOMMENDATIONS: * Gradual return to full activity over the next 2-3 weeks. * No lifting - nothing heavier than baby over the next 2-3 weeks. * Do not engage in vigorous exercise, sexual activity or sports until cleared by your physician. * Do not drive or operate any motorized equipment until cleared by your physician. * You may shower/bathe daily. MEDICATIONS: For discomfort or pain, you may use Acetaminophen (Tylenol), Ibuprofen (Advil), or Naproxen (Aleve) following the package directions. For constipation you may use Colace following the package directions. BREAST CARE: If you are not breast feeding: * Wear a supportive bra 24 hours a day for one to two weeks. * Avoid stimulating your breasts and nipples as much as possible during the first few weeks after delivery. * When taking a shower, have the warm water hit your back, not breasts. * When your breasts feel full, apply ice packs. Usually three to four times a day helps ease the discomfort. * Take a mild pain medication (Tylenol / Motrin) when you are uncomfortable. If breast feeding: * Use breast milk to lubricate nipples. Lansinoh cream may be used for sore nipples. You do not need to remove cream prior to breast feeding. If using a different brand of cream, check the label for directions regarding removal of cream prior to nursing. * Wear a supportive bra. * If having problems with breasts or breast feeding, call a solar energy consultant and designer or your health care provider. SPECIAL CARE INSTRUCTIONS: When you are discharged from the hospital, it is important for you to follow the instructions listed below: * During the first week at home, you should be able to care for yourself and your baby. In addition, the usual light household activities are encouraged. * Limit your activities to the way you feel. Do not try to clean the house or move furniture. Be sensible. * If you actively engage in sports and have done so up until the time of your delivery, you may resume these activities as soon as you feel able. This may take up to one month or even longer. Use good judgment. * Continue to take your vitamins for at least six weeks after the of your baby. * Your diet need not be limited unless you were on a special diet before your delivery. Breast-feeding mothers need around 2500 calories per day and at least 64-80 ounces of fluid per day (8 to 10 glasses). * You should eat foods from the four major food groups. Crash diets or fad diets are to be avoided. Eating lean meats, fresh fruits and vegetables, low-fat dairy products, high fiber foods and a regular exercise program, will help you get back to your pre- weight without putting your health at risk. * Constipation is sometimes a problem after delivery. Take a mild laxative as needed. If breast feeding, Milk of Magnesia is acceptable to use. You may use a suppository or Fleets enema. * A daily shower or tub bath is suggested. Wash incision daily with warm soapy water and pat dry. It doesn't need to be covered unless drainage is present. * A bloody vaginal discharge will usually continue until around four weeks . A small amount of bleeding may continue for as long as six weeks. Vaginal discharge changes from the bright red bleeding after delivery to pink then brownish and finally yellowish-pink before becoming white and disappearing. * Bleeding may increase with activity. Your first period may come in 4-8 weeks. If you are breast feeding, your period may be delayed even longer. * Lander (sex) can begin whenever both you and your partner feel comfortable and do not have any form of genital infection. It is recommended that you wait at least six weeks for internal and external healing to occur. If you have questions, please talk to your health care practitioner. A condom should be used to prevent infection and . * Foreplay, gentle intercourse and lubrication is very important the first several times to prevent pain. A water-based lubricant such as K-Y jelly or Astroglide may be used. * If you have RH negative blood and your baby is RH positive, you will receive RHOGAM by injection prior to discharge. The nurse will give you a card to keep with you that has the date and place that you received RHOGAM after delivery. * During your care, you had a Rubella screen done to check for the presence of rubella antibodies in your blood. If your test was negative, you will receive a Rubella vaccine prior to discharge. This vaccine may cause a fever, soreness at the injection site and flu-like symptoms. If these symptoms persist, notify your health care practitioner. is not advised for one month after a Rubella vaccine. * Verbalizes understanding of car seat law as reviewed with patient nursing. * Car Seat hand-out given and reviewed with patient by nursing. * Shaken baby information reviewed with patient by nursing. Call you doctor if: * Heavy bleeding (saturating several pads an hour) or passing clots the size of your fist. * A fever >101 degrees F (38.3 degrees C) on two occasions four hours apart and/or chills. * Unusual pain in the pelvic or vaginal areas. * Call the doctor for any increased redness, drainage or swelling around the incision and any pain unrelieved by prescribed pain medication. * "Baby Blues" lasting longer than two weeks. If you have any questions or concerns, call your health care practitioner at . FOLLOW UP VISIT: * Please call the office at to schedule a 6 week examination. It is important you keep this appointment. It is important for you to make arrangements for either yearly or twice yearly check-ups thereafter. Pending Studies at Discharge: No Stand-Alone Forms: My [facility], Smoking Cessation Medications and DC Order Prescriptions: New oxycodone 5 mg Tablet 5 - 10 mg PO Q3H PRN (Reason: pain) Qty: 14 0RF ibuprofen 600 mg tablet 600 mg PO Q8H PRN (Reason: pain) Qty: 20 0RF oxycodone 5 mg tablet 5 mg PO Q6HWA PRN (Reason: pain) Qty: 20 0RF cephalexin 250 mg tablet 250 mg PO QID 10 Days Qty: 40 0RF Continued docusate sodium [Colace] 100 mg Capsule 100 mg PO QPM vit-ferrous sulfat-FA 27 mg iron- 0.8 mg Tablet 1 tab PO DAILY Discontinued aspirin 81 mg Capsule 81 mg PO DAILY Discharge Orders: Discharge Order (Routine); Ordered 06/21/24 Ordered By: William Lopez Admission Data Admit Date/Time: 06/19/24 05:30 Attending Provider: Clari Ann Admit Provider: Clari Ann Primary Care Provider: Delmer Castro Other Providers: Jose Hankins Other Interventions: Discharge Summary Assessment (RN) Last Done: 06/21/24 17:00 Supervising Physician Co-Signing Physician Notes Resident Physician Supervision Note: I interviewed and examined the patient. Discussed with Dr. Bradshaw and agree with findings and plan as documented in the note. Any exceptions or clarifications are listed here: POD2 s/p rltcs. Pt noted area of redness and warmth around umbilicus after a small ripping sensation last night. Has not changed since she first noted it. Is localized to malini-umbilical area, the actual umbilicus appears slightly bruised. Incision is c/d/i. BP mild range over night but was just after ambulating from bathroom and discussing baby needing formula supplementation, repeat wnl. Op report notes having to divide R rectus so ?if small hematoma. H/H stable. Will start antibx and ice area, re- eval. Pt does desire dc but baby wt is down a bit. If strongly desires, I think ok to dc w/ keflex and have outpt f/u on wed but will see how it looks again later this morning Documented By: Radha Quinones MD Coding Level of Care Code None Diagnoses Encounter for care or examination of mother immediately after delivery Z39.0 visit type: exam and care immediately after delivery
== END 2024-06-21 17:10 | disposition home or self-care (01) | DRG 784 ==
LOC: 4S1 05:30 → EDSTATUS 09:15 → 4E2 12:14